=== PATIENT | female | born 1945 | race Caucasian/White ===

== ENCOUNTER 2017-01-04 11:53 | Outpatient (CLI) ==
[2015-12-12 13:09] VITALS: BMI 30.9
--- NOTE | 2017-01-04 12:33 | DI ---
EXAM: PA and lateral views of the chest HISTORY: Persisting cough COMPARISON: Chest x-ray 09/06/2014 and multiple priors FINDINGS: The cardiomediastinal silhouette is unchanged with stable sternotomy wires. There is no pneumothorax or pleural effusion. There is no consolidation, nodule or mass. The osseous structure s demonstrate degenerative disease of the spine. IMPRESSION: No acute cardiopulmonary process
[2017-01-04 13:06] LABS: BASOPHILS % (AUTO) 0.6 % (0.0-3.0); HEMATOCRIT 32.3 % (37.0-47.0); HEMOGLOBIN 10.6 g/dl (12.0-16.0); LYMPHOCYTES # (AUTO) 1.6 K/uL (0.60-3.4); LYMPHOCYTES % (AUTO) 22.6 (10.0-50.0); MEAN CORPUSCULAR HEMOGLOBIN 29.5 pg (27.0-31.0); MEAN CORPUSCULAR HGB CONC 32.8 (31.8-35.4); MONOCYTES # (AUTO) 0.4 K/uL (0.4-2.0); MONOCYTES % (AUTO) 5.9 (0-10); NEUTROPHILS % (AUTO) 69.9; PLATELET COUNT 237 10^3/uL (140-440); RED BLOOD COUNT 3.59 10^6/ul (4.20-5.40); WHITE BLOOD COUNT 7.12 K/ul (4.6-10.2)
[2017-01-04 13:10] LABS: BILIRUBIN,URINE Negative (NEGATIVE); KETONES,URINE Negative (NEGATIVE); LEUKOCYTE ESTERASE ,URINE Trace (NEGATIVE); NITRITE,URINE Negative (NEGATIVE); PH,URINE 5.5 (5-9); PROTEIN,URINE Negative (NEGATIVE); URINE, BLOOD Negative (NEGATIVE)
[2017-01-04 13:14] LABS: ADD URINE MICROSCOPIC YES
[2017-01-04 13:40] LABS: ALBUMIN/GLOBULIN RATIO 1.11; ANION GAP 15.2; BILIRUBIN,TOTAL 0.48 mg/dL (0.00-1.20); BUN/CREATININE RATIO 24.48; CHOL/HDL RATIO 4.6 (4.5-5.5); CREATININE 0.98 mg/dL (0.60-1.30); POTASSIUM 4.2 mmol/L (3.5-5.10); TOTAL PROTEIN 7.6 g/dL (5.8-8.1)
== END 2017-01-04 11:54 | disposition home or self-care (01) ==
LOC: LAB 11:53
PROVIDERS: ATTEND General Practice
DX: E11.9 Type 2 diabetes mellitus without complications (principal); R05 Cough; Z79.899 Other long term (current) drug therapy
CPT/HCPCS: 36415; 80053; 80061; 81001; 83036; 84443; 85025

== ENCOUNTER 2017-05-14 13:05 | Outpatient (CLI) | payer OTHER ==
[2015-12-12 13:09] VITALS: BMI 30.9
[2017-05-14 13:22] LABS: BILIRUBIN,URINE Negative (NEGATIVE); KETONES,URINE Negative (NEGATIVE); LEUKOCYTE ESTERASE ,URINE Negative (NEGATIVE); NITRITE,URINE Negative (NEGATIVE); PROTEIN,URINE Negative (NEGATIVE); URINE, BLOOD Negative (NEGATIVE)
[2017-05-14 13:23] LABS: BASOPHILS % (AUTO) 0.5 % (0.0-3.0); HEMATOCRIT 33.9 % (37.0-47.0); HEMOGLOBIN 11.1 g/dl (12.0-16.0); IMMATURE GRANULOCYTE % (AUTO) 0.5 % (0.0-5.0); LYMPHOCYTES # (AUTO) 1.7 K/uL (0.60-3.4); LYMPHOCYTES % (AUTO) 31.6 (10.0-50.0); MEAN CORPUSCULAR HEMOGLOBIN 29.1 pg (27.0-31.0); MEAN CORPUSCULAR HGB CONC 32.7 (31.8-35.4); MONOCYTES # (AUTO) 0.3 K/uL (0.4-2.0); MONOCYTES % (AUTO) 5.6 (0-10); NEUTROPHILS # (AUTO) 3.4 K/ul (2.0-6.9); NEUTROPHILS % (AUTO) 61.8; PLATELET COUNT 211 10^3/uL (140-440); RED BLOOD COUNT 3.81 10^6/ul (4.20-5.40)
[2017-05-14 13:24] LABS: ADD URINE MICROSCOPIC NO
[2017-05-14 14:03] LABS: ALBUMIN 3.9 g/dL (3.4-5.0); ALBUMIN/GLOBULIN RATIO 1.15; ANION GAP 15.1; BILIRUBIN,TOTAL 0.55 mg/dL (0.00-1.20); BUN/CREATININE RATIO 25.89; CALCIUM 9.1 mg/dL (8.2-10.2); CHOL/HDL RATIO 4.2 (4.5-5.5); CREATININE 1.12 mg/dL (0.60-1.30); POTASSIUM 4.1 mmol/L (3.5-5.10); TOTAL PROTEIN 7.3 g/dL (5.8-8.1)
== END 2017-05-14 13:06 | disposition home or self-care (01) ==
LOC: LAB 13:05
PROVIDERS: ATTEND General Practice
DX: E03.9 Hypothyroidism, unspecified (principal); E11.9 Type 2 diabetes mellitus without complications; R53.83 Other fatigue; Z79.899 Other long term (current) drug therapy
CPT/HCPCS: 36415; 80053; 80061; 81001; 83036; 84443; 85025

== ENCOUNTER → 2017-06-11 | Outpatient (POV) ==
[2015-12-12 13:09] VITALS: BMI 30.9
== END ==
LOC: OUTPT 00:01
PROVIDERS: ATTEND Otolaryngology
DX: H91.90 Unspecified hearing loss, unspecified ear (principal)
CPT/HCPCS: 92557; 92567

== ENCOUNTER 2017-07-16 07:36 | Outpatient (CLI) ==
[2015-12-12 13:09] VITALS: BMI 30.9
[2017-07-16 08:13] LABS: ALBUMIN 3.9 g/dL (3.4-5.0); BUN/CREATININE RATIO 18.34; CALCIUM 9.3 mg/dL (8.2-10.2); CREATININE 1.09 mg/dL (0.60-1.30); PHOSPHORUS 3.8 mg/dL (2.8-4.1)
== END 2017-07-16 07:37 | disposition home or self-care (01) ==
LOC: LAB 07:36
PROVIDERS: ATTEND General Practice
DX: E11.9 Type 2 diabetes mellitus without complications (principal); R10.9 Unspecified abdominal pain; R14.0 Abdominal distension (gaseous); Z79.899 Other long term (current) drug therapy
CPT/HCPCS: 36415; 80069; 83036

== ENCOUNTER 2017-07-23 08:16 | Day surgery (SDC) ==
[2015-12-12 13:09] VITALS: BMI 30.9
[2017-07-23] MEDS ORDERED: LIDOCAINE 1% 20 ML MDV ID STA (09:07)
[2017-07-23] MEDS ORDERED: VERSED ONE (10:18)
[2017-07-23] MEDS ORDERED: LIDOCAINE HCL 2% LUER-JET ONE (10:18)
[2017-07-23] MEDS ORDERED: DIPRIVAN 20 ML VIAL IVP ONE (10:18)
[2017-07-23 14:02] VITALS: BP 135/66; TEMP 98.5
--- NOTE | 2017-07-24 09:09 | OP ---
INDICATIONS FOR PROCEDURE: 72-year-old female presents for endoscopy exam. She has intermittent dysphagia mostly to solids. MEDICATIONS: SEE ANESTHESIA NOTES. PROCEDURE: ENDOSCOPY, OWEN BRUSHING, BANGLADESHI DILATATION REPORT: The risks, benefits, alternatives and limitations were discussed in detail with the patient. Informed consent was obtained. After adequate sedation was achieved, the video endoscope was introduced in the posterior pharynx and esophagus under direct vision and easily advanced down to the second portion of the duodenum. I then slowly withdrew. The duodenal mucosa appeared unremarkable as did the duodenal bulb. The antrum and body were relatively unremarkable. The scope was retroflexed to look at the cardia and fundus which was unremarkable. The scope was anteflexed and withdrawn back through the esophagus. Throughout the esophagus there was yellow plaquing consistent with Candidiasis. There was moderate amount of this. There was no underlying inflammatory changes. The yellow plaques were brushed for OWEN prep. I saw no other abnormalities to account for dysphagia. I advanced the scope back down the gastric lumen. I placed a guidewire and withdrew the scope. Over the guidewire, I easily advanced the 54 [place] dilator. The patient tolerated the procedure well with stable vital signs and pulse oximetry throughout. IMPRESSION: 1. PROBABLE ESOPHAGEAL CANDIDIASIS 2. SUCCESSUFUL PASSIVE DILATATION OF THE ESOPHAGUS RECOMMENDATIONS: 1. Diflucan 100 mg daily for 7 days 2. I advised her to make sure she takes her time to cut and chew food well, eat slowly. 3. Will await OWEN prep to confirm. 4. Office visit as needed. CC: DR. CARLITOS LARSON
== END 2017-07-23 11:50 | disposition home or self-care (01) ==
LOC: SURG 08:16
PROVIDERS: ATTEND Internal Medicine Gastroenterology
DX: R13.19 Other dysphagia (principal); B37.81 Candidal esophagitis
CPT/HCPCS: 87210

== ENCOUNTER 2018-05-27 16:56 | Outpatient (CLI) | payer OTHER ==
[2015-12-12 13:09] VITALS: BMI 30.9
--- NOTE | 2018-05-27 18:17 | CT ---
EXAM: CT abdomen and pelvis without contrast HISTORY: Unspecified abdominal pain TECHNIQUE: Multi-slice transaxial helical with coronal and sagittal reformed images COMPARISON: CT abdomen/pelvis from 03/15/2015 FINDINGS: The heart is mildly enlarged. No pericardial or pleural effusions are detected. Wire ster nal sutures are in place. The dependent lungs are atelectatic. The hepatic attenuation is normal relative to the spleen. Hepatic surface contours are nodular. The spleen is enlarged at 13.6 cm. The umbilical vein is recannulated. The gallbladder is present with out significant dilatation. The pancreas is atrophic. The adrenal glands are normal. The kidneys h ave normal size. There is focal renal cortical thinning at the inferior pole of the left kidney. Th e ureters have normal caliber. The nonopacified bladder is grossly normal. The uterus is surgically absent and there are no adnexal masses. The intestines have normal caliber without evidence of obstruction or acute inflammation. The append ix is not visualized. There are no secondary features of acute appendicitis. Diverticula arise from sigmoid colon without CT evidence of diverticulitis. The aorta is atherosclerotic. No lymphadenopa thy or ascites. The bones are free of suspicious osteolytic or osteoblastic lesions. A right total hip prosthetic is in place without evidence of loosening. IMPRESSION: 1. 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 2. No biliary dilatation. 3. No ureteral pelvicaliectasis. 4. Nonobstructive intestinal gas pattern. Colonic diverticulosis without CT evidence of diverticuli tis.
== END 2018-05-27 16:57 | disposition home or self-care (01) ==
LOC: RAD 16:56
PROVIDERS: ATTEND General Practice
DX: R10.9 Unspecified abdominal pain (principal); R10.819 Abdominal tenderness, unspecified site
CPT/HCPCS: 36415; 80053; 81001; 83036; 84443; 85025

== ENCOUNTER 2018-05-27 18:14 | Outpatient (CLI) | payer OTHER ==
[2015-12-12 13:09] VITALS: BMI 30.9
== END 2018-05-27 18:15 | disposition home or self-care (01) ==
LOC: LAB 18:14
PROVIDERS: ATTEND General Practice
DX: E11.9 Type 2 diabetes mellitus without complications (principal); R10.9 Unspecified abdominal pain; R10.819 Abdominal tenderness, unspecified site
CPT/HCPCS: 36415; 80053; 81001; 83036; 84443; 85025

== ENCOUNTER 2018-06-17 16:27 | Outpatient (CLI) | payer OTHER ==
[2015-12-12 13:09] VITALS: BMI 30.9
== END 2018-06-17 16:28 | disposition home or self-care (01) ==
LOC: RHC-LAB 16:27
PROVIDERS: ATTEND General Practice
DX: K74.60 Unspecified cirrhosis of liver (principal); E11.9 Type 2 diabetes mellitus without complications
CPT/HCPCS: 36415; 80061; 80076; 84443

== ENCOUNTER 2018-09-17 14:21 | Outpatient (CLI) ==
[2015-12-12 13:09] VITALS: BMI 30.9
== END 2018-09-17 14:22 | disposition home or self-care (01) ==
LOC: RHC-LAB 14:21
PROVIDERS: ATTEND General Practice
DX: R06.02 Shortness of breath (principal); E11.9 Type 2 diabetes mellitus without complications; E03.9 Hypothyroidism, unspecified
CPT/HCPCS: 36415; 80053; 80061; 83880; 84443; 85025

== ENCOUNTER 2018-09-26 15:57 | Outpatient (CLI) | payer OTHER ==
[2015-12-12 13:09] VITALS: BMI 30.9
== END 2018-09-26 15:58 | disposition home or self-care (01) ==
LOC: RHC-LAB 15:57
PROVIDERS: ATTEND General Practice
DX: D64.9 Anemia, unspecified (principal)
CPT/HCPCS: 36415; 85025

== ENCOUNTER 2018-11-27 11:36 | Outpatient (CLI) ==
[2015-12-12 13:09] VITALS: BMI 30.9
== END 2018-11-27 11:37 | disposition home or self-care (01) ==
LOC: RHC-LAB 11:36
PROVIDERS: ATTEND General Practice
DX: E11.9 Type 2 diabetes mellitus without complications (principal); E03.9 Hypothyroidism, unspecified; Z79.899 Other long term (current) drug therapy
CPT/HCPCS: 36415; 80053; 80061; 81001; 83036; 84443; 85025

== ENCOUNTER 2018-12-02 16:31 | Outpatient (CLI) ==
[2015-12-12 13:09] VITALS: BMI 30.9
--- NOTE | 2018-12-03 09:04 | DI ---
EXAM: Two views of the chest. History: Cough. Comparison: Chest radiograph 62,017 Findings: Heart is mildly enlarged. Sternotomy wires. Artificial heart valve again seen. No focal consolidation. No appreciable pleural fluid and no pneumothorax. Atherosclerotic vascular calcific ations. No acute osseous abnormalities. Impression: Mild cardiomegaly without acute disease in the chest
--- NOTE | 2018-12-03 09:05 | DI ---
Exam: Lumbar spine complete with obliques. HISTORY: Pain. Comparison: Lumbar spine CT 07/16/2014. Findings: Anterior, lateral, cone down and bilateral oblique images of the lumbar spine are submitte d. These again demonstrates six [id number], lumbarized vertebrae with mild levoscoliosis. Ther e is multilevel moderate degenerative disc and facet arthropathy with no compression fracture. 2 mm anterolisthesis of L5 on L6 is noted. Dense atherosclerotic disease is seen. Impressions: Multilevel moderate degenerative disc disease and moderate to severe facet arthropathy with no compression fracture in the lumbar spine Six [id number], lumbarized vertebrae. 2 mm anterolisthesis of L5 on L6. Atherosclerosis.
== END 2018-12-02 16:32 | disposition home or self-care (01) ==
LOC: RAD 16:31
PROVIDERS: ATTEND General Practice
DX: M54.5 Low back pain (principal); R05 Cough

== ENCOUNTER 2018-12-25 16:17 | Outpatient (CLI) ==
[2015-12-12 13:09] VITALS: BMI 30.9
== END 2018-12-25 16:18 | disposition home or self-care (01) ==
LOC: LAB 16:17
PROVIDERS: ATTEND General Practice
DX: E11.9 Type 2 diabetes mellitus without complications (principal); E03.9 Hypothyroidism, unspecified
CPT/HCPCS: 36415; 80053; 80061; 83036; 84443; 85025

== ENCOUNTER 2019-01-01 08:08 | Outpatient (CLI) | payer OTHER ==
[2015-12-12 13:09] VITALS: BMI 30.9
== END 2019-01-01 08:09 | disposition home or self-care (01) ==
LOC: RHC-LAB 08:08
PROVIDERS: ATTEND General Practice
DX: R63.4 Abnormal weight loss (principal); R11.0 Nausea; R10.10 Upper abdominal pain, unspecified
CPT/HCPCS: 82272

== ENCOUNTER 2019-01-02 09:45 | Outpatient (CLI) | payer OTHER ==
[2015-12-12 13:09] VITALS: BMI 30.9
--- NOTE | 2019-01-02 11:38 | CT ---
EXAM: CT abdomen pelvis without contrast HISTORY: With loss, pain upper abdomen, nausea COMPARISON: 05/27/2018 TECHNIQUE: CT abdomen pelvis performed without intravenous contrast. Coronal and sagittal reformatt ed images obtained. FINDINGS: Please refer to separate report CT chest regarding findings in the lower chest. No free a ir. No acute abnormalities of the bones. Degenerative change in the spine. Right hip arthroplasty. Evaluation liver parenchyma limited without contrast. Nodular contour of the liver, suggesting cir rhotic configuration. No gallstones. Fatty atrophy of the pancreas. Spleen is enlarged. Adrenals unremarkable. Cortical scarring left inferior kidney, likely relates to remote insult. No hydroneph rosis or nephrolithiasis. Bladder partially obscured secondary to streak artifact from hip arthropla sty. Small fat-containing periumbilical hernia. Aorta normal in caliber. Extensive atherosclerosis . Stomach unremarkable. No dilated loops small bowel. Appendix not visualized. Colonic diverticul osis. Trace ascites. Recanalized periumbilical vein. Inflammation in the mesentery in the region s urrounding the inferior mesenteric artery. IMPRESSION: 1. Inflammation in the mesentery surrounding the inferior mesenteric artery, a finding is nonspecifi c and could represent vasculitis or panniculitis or other nonspecific mesenteric inflammatory process . 2. Cirrhotic appearance of the liver with findings suggesting portal hypertension including splenome bay and recanalized periumbilical vein. 3. Trace ascites. 4. Colonic diverticulosis. 5. Extensive atherosclerosis.
--- NOTE | 2019-01-02 11:51 | CT ---
EXAM: CT chest without contrast HISTORY: Abnormal weight loss COMPARISON: None TECHNIQUE: CT chest performed without intravenous contrast. Coronal and sagittal reformatted images obtained FINDINGS: Thoracic inlet unremarkable. Heart mildly enlarged. Coronary calcifications. Post CABG changes. No pericardial effusion. Aorta normal in caliber. Extensive atherosclerosis. Small ductu s diverticulum suggested. Esophagus unremarkable. Evaluation for lymphadenopathy limited without co ntrast. No lymphadenopathy identified. No acute abnormalities of the bones. Degenerative change in the spine. Median sternotomy wires. Central airway patent. Mild bibasilar ground-glass likely repr esents atelectasis. No airspace consolidation. No pleural effusion. No pneumothorax. Granulomatou s calcification. Please refer to separate report CT abdomen pelvis regarding findings in the upper a bdomen. IMPRESSION: 1. Mild bibasilar atelectasis. No airspace consolidation. 2. Cardiomegaly. Post CABG changes. 3. Extensive atherosclerosis.
== END 2019-01-02 09:46 | disposition home or self-care (01) ==
LOC: RAD 09:45
PROVIDERS: ATTEND General Practice
DX: E03.9 Hypothyroidism, unspecified (principal); R11.0 Nausea; R63.4 Abnormal weight loss; E78.49 Other hyperlipidemia; R10.10 Upper abdominal pain, unspecified
CPT/HCPCS: 36415; 84443; 85651; 86140; 87015; 87045; 87493; 87899; 89055

== ENCOUNTER 2019-01-21 13:42 | Outpatient (CLI) ==
[2015-12-12 13:09] VITALS: BMI 30.9
[2019-01-21] MEDS ORDERED: VITAMIN B-12 IM STA (14:02)
[2019-01-21 14:16] VITALS: BP 128/80; TEMP 99
== END 2019-01-21 13:43 | disposition home or self-care (01) ==
LOC: OPMED 13:42
PROVIDERS: ATTEND Internal Medicine Hematology & Oncology
DX: D61.818 Other pancytopenia (principal)
CPT/HCPCS: 96372

== ENCOUNTER 2019-01-22 14:36 | Outpatient (CLI) ==
[2015-12-12 13:09] VITALS: BMI 30.9
[2019-01-22] MEDS ORDERED: VITAMIN B-12 IM STA (14:52)
[2019-01-22 15:21] VITALS: BP 122/67
== END 2019-01-22 14:37 | disposition home or self-care (01) ==
LOC: OPMED 14:36
PROVIDERS: ATTEND Internal Medicine Hematology & Oncology
DX: D61.818 Other pancytopenia (principal)
CPT/HCPCS: 96372

== ENCOUNTER 2019-01-23 09:33 | Outpatient (CLI) ==
[2015-12-12 13:09] VITALS: BMI 30.9
[2019-01-23] MEDS ORDERED: VITAMIN B-12 IM STA (09:46)
[2019-01-23 09:48] VITALS: BP 144/73; TEMP 98.6
== END 2019-01-23 09:34 | disposition home or self-care (01) ==
LOC: OPMED 09:33
PROVIDERS: ATTEND Internal Medicine Hematology & Oncology
DX: D61.818 Other pancytopenia (principal)
CPT/HCPCS: 96372

== ENCOUNTER 2019-01-29 16:10 | Observation (INO) ==
[2019-01-29 17:15] VITALS: BMI 21.9
[2019-01-29] MEDS ORDERED: NON-FORMULARY MEDICATION (Metformin Hcl [Metformin Hcl] 1,000 MG) PO SCH (21:00)
[2019-01-29] MEDS ORDERED: NON-FORMULARY MEDICATION (Losartan Potassium [Losartan Potassium] 50 MG) PO SCH (21:00)
--- NOTE | 2019-01-30 02:04 | DI ---
Exam: Chest two-view History: Cough and fever FINDINGS: Normal cardiomediastinal contours. Normal pulmonary vasculature. Atherosclerotic calcifi cation of the aorta. Prior mediastinotomy. No acute chest wall abnormality. Impression: No acute cardiopulmonary disease.
[2019-01-30] MEDS ORDERED: LEVOTHYROXINE SODIUM 88 MCG PO SCH (06:30)
[2019-01-30] MEDS: ASPIRIN 81 MG PO SCH (08:21)
[2019-01-30] MEDS: NON-FORMULARY MEDICATION (Amlodipine Besylate [Amlodipine Besylate] 2.5 MG) PO SCH (08:21)
[2019-01-30] MEDS: NON-FORMULARY MEDICATION (Losartan Potassium [Losartan Potassium] 50 MG) PO SCH ×2 (08:22→20:37)
[2019-01-30] MEDS: NON-FORMULARY MEDICATION (Metformin Hcl [Metformin Hcl] 1,000 MG) PO SCH ×2 (08:23→16:38)
[2019-01-30] MEDS: METOPROLOL SUCCINATE 50 MG PO SCH (08:23)
[2019-01-30] MEDS: NON-FORMULARY MEDICATION (Pravastatin Sodium [Pravastatin Sodium] 40 MG) PO SCH (08:24)
[2019-01-30] MEDS ORDERED: BLOOD SUGAR DIAGNOSTIC MC SCH (09:00)
[2019-01-30] MEDS ORDERED: INFUVITE ADULT IV ONE ×2 (12:40→23:10)
[2019-01-30] MEDS: INFUVITE ADULT 10 ML in D5%-1/2NS-KCL 20 MEQ/L IV SOL 1,000 ML IV SCH ×2 (12:59→23:18)
[2019-01-31] MEDS ORDERED: LEVOTHYROXINE SODIUM 88 MCG PO SCH (06:30)
[2019-01-31] MEDS: NON-FORMULARY MEDICATION (Pravastatin Sodium [Pravastatin Sodium] 40 MG) PO SCH (08:26)
[2019-01-31] MEDS: METOPROLOL SUCCINATE 50 MG PO SCH (08:27)
[2019-01-31] MEDS: NON-FORMULARY MEDICATION (Amlodipine Besylate [Amlodipine Besylate] 2.5 MG) PO SCH (08:27)
[2019-01-31] MEDS: NON-FORMULARY MEDICATION (Losartan Potassium [Losartan Potassium] 50 MG) PO SCH (08:27)
[2019-01-31] MEDS: ASPIRIN 81 MG PO SCH (08:27)
[2019-01-31] MEDS: NON-FORMULARY MEDICATION (Metformin Hcl [Metformin Hcl] 1,000 MG) PO SCH (08:27)
[2019-01-31] MEDS ORDERED: NON-FORMULARY MEDICATION (Solifenacin Succinate [Vesicare] 10 MG) PO SCH (09:00)
[2019-01-31] MEDS ORDERED: INFUVITE ADULT IV ONE (10:16)
[2019-01-31] MEDS: INFUVITE ADULT 10 ML in D5%-1/2NS-KCL 20 MEQ/L IV SOL 1,000 ML IV SCH (10:21)
[2019-01-31 14:02] VITALS: BP 131/69; TEMP 98
[2019-02-05] MEDS ORDERED: VITAMIN B-12 SUBCUT SCH (09:00)
--- NOTE | 2019-02-13 11:49 | DS ---
DATE OF SERVICE: 01/31/19 PATIENT IDENTIFICATION: 73-year-old female presented to the office on 01/29/19 because of fever and chills the night before and determined that her temperature did rise to 102. The patient at time of presentation to the office had a temperature of 100.5 complaining of headache, muscular aches, cough, nasal drainage. This patient had been referred to a fitter tacker/oncologist because of pancytopenia and had a bone marrow done 01/26/19 and iron infusion Saturday01/27/19. The patient has been advised that she might be referred to a outsole molder as well as infectious disease M.D. The patient because of the febrile illness and muscular aches and chills was admitted to the hospital for observation. HOSPITAL COURSE: The patient on admission was recorded to have a temperature 98.7 orally, pulse 70, blood pressure left 153/68 and 156/70 on right. Respiratory rate 16, oxygen saturation 99 on room air. Weight 119 lbs, 14.9 ozs, 5'2". Alert, oriented times four, not dyspneic or tachypneic. She just doesn't feel good complaining of headache as well as muscular aches and cough. The throat was erythematous with some exudates but the rapid strep was negative as well as influenza A and B. Neck no masses, no bruit. Chest essentially symmetrical and equal with good expansion. The patient has a scar in the median sternum from the heart bypass surgery. Lungs - breath sounds are heard on both sides, no rales or wheezing. Heart is audible and regular with good tones, no murmurs. Abdomen flat, soft, pendulous with no significant tenderness, no masses palpable. Bowel sounds are active and no bruit. External genitalia not examined. Rectal examination not performed as well as pelvic. The patient initial workup consisted of a CBC showing WBC 3,620, hemoglobin 9.5, hematocrit 30.6, RBC 3.26. RDW 15.4, platelet count 76,000, the rest are normal. Subsequent CBC essentially unchanged. CMP on admission is unremarkable. The proBNP is slightly elevated at 1,150. Procalcitonin 0.19. TSH 1.470. Urine normal and unremarkable. Repeat CMP the next day was essentially the same. On the 3rd day, the day of discharge the blood sugar did rise to 161.3. The NT-ProBNP went down to 627 from 1,150. Influenza A antibody was reported as 1:16 and the B is negative. Chest x-ray showed no acute cardiopulmonary disease. Temperature did rise slightly above normal to 99.3. Blood pressure remained slightly elevated. The patient during the subsequent hospital stay did not have any chills or any significant fever. The appetite seemed to be less and had no appetite at lunch. She has nibbled on her food. The patient on the day of discharge however did eat 100% of breakfast and 100% of lunch before discharge. The patient at time of discharge was alert, ambulatory with movement of all extremities with cough but no fever. The daughter was present in the room. I explained to the patient that we are not able to explain the fever. It might be a viral infection that did resolve. The influenza A titer is slightly elevated but not significantly high to account for the problem. I explained to them that we will try to get a convalescent titer somewhere about three weeks from the time of discharge. The patient's vital signs at 2 p.m. 01/31/19 reported a temperature of 98 orally, pulse 68, blood pressure 131/69, respiratory rate 20, oxygen saturation 97 on room air. Sore throat is much less. The redness is less. The lungs remain clear to auscultation on both sides. The heart is audible and regular with good tones. The abdomen is unremarkable. The patient still feels fatigued and afebrile. The muscular aches are less as well as the headaches. She is advised to continue with her followup with the fitter tacker/oncologist and the subspecialities that she is referred to. FINAL DIAGNOSES: 1. ACUTE FEBRILE ILLNESS, RESOLVED, PROBABLY VIRAL. 2. TYPE 2 DIABETES MELLITUS. 3. CORONARY ARTERY DISEASE STATUS POST BYPASS. 4. HYPERTENSION. 5. DYSLIPIDEMIA. 6. PANCYTOPENIA. 7. HYPOTHYROIDISM, REPLACED. 8. HISTORY OF DEPRESSION. PLAN: The patient is to see me at the office next week and before if there are any concerns. She should resume all of her medications. PROGNOSIS: Guarded. TIME SPENT: GREATER THAN 30 MINUTES MTDD
--- NOTE | 2019-03-03 14:02 | HP ---
DATE OF SERVICE: 01/29/19 CHIEF COMPLAINT: Chills and fever with muscle aches. High fever up to 102. HISTORY OF PRESENT ILLNESS: Ms. Davidson is a pleasant 73-year-old patient of Dr. Carolina that presented to the office with complaints of fever, chills and muscle aches that started the night prior. Her temperature in the office was 100.5. She reported the night prior that her temperature had gotten up to 102. She did have some complaints of sinus headache and some sinus drainage and a little bit of a cough. She denied urinary tract infection symptoms. She did report a recent bone marrow biopsy done on Saturday. She did have an iron infusion done on Saturday. 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 She does not appear well today. Her daughter is with her at the office visit today. She appears very weak. PAST MEDICAL HISTORY: Includes: tension headaches, a wound to the left arm that had a difficult time healing, acute arthritis, cataracts, depression, diabetes mellitus, dyslipidemia , hearing problems, renal stents, hypertension, hypothyroidism, myocardial infarction, restless leg syndrome, sleep trouble. PAST SURGICAL HISTORY: Includes: Partial thyroidectomy, retinal repair times two, liver biopsy, cataract extraction, coronary artery bypass graft in 2008, three bypasses, dental extraction, hysterectomy, tubal ligation. FAMILY HISTORY: Reported mother with history of diabetes mellitus, melanoma and hypertension; at age 69. SOCIAL HISTORY: Never smoker. No alcohol use. Denies any substance abuse. Buddhist preference is Druze. MEDICATIONS: (CURRENT HOME) Amlodipine 2.5 mg daily Metformin 1000 mg twice a day Levothyroxine 100 mcg daily Losartan 50 mg tablet twice a day Metoprolol XL 50 mg tablet daily Pravastatin 40 mg daily Aspirin 81 mg tablet daily Acetaminophen 500 mg tablet as needed ALLERGIES: PENICILLIN, SULFA AND MORPHINE REVIEW OF SYSTEMS: CONSTITUTIONAL: Positive for fever and chills. No reports of nightsweats. She has had some decrease in weight over the last several months. HEENT: She has had some sinus congestion, some sinus headache and nasal drainage. She has had a sore throat. CARDIOVASCULAR: No reports of chest pain, irregular rhythm, orthopnea. No reports of peripheral edema. LUNGS: She has had a congested cough. No reports of shortness of breath. She does complain of some chest congestion. No reports of lung disease. GASTROINTESTINAL: No complaints of abdominal pain, nausea, vomiting, diarrhea, constipation or blood in stool. No changes in stool consistency. GENITOURINARY: Denies any UTI symptoms. Denies any dysuria, hematuria, nocturia or urinary incontinence. MUSCULOSKELETAL: No reports of muscle pain, joint redness or swelling. She does have a history of arthritis NEUROLOGIC: No reports of any dizziness. Does complain of some fatigue and weakness. PSYCHIATRIC: No complaints of anxiety, depression or mood changes. . ENDOCRINE: She does have a history of diabetes mellitus and hypothyroidism. No complaints of increased thirst, urination, heat or cold intolerance. INTEGUMENT: No reports of rashes, lesions or skin changes. PHYSICAL EXAMINATION: GENERAL: She is alert and oriented. She does appear weak and ill. VITAL SIGNS: In the office, height 63", weight 146 lbs, temperature 100.5, pulse 70, respiratory rate 16, blood pressure 155/76 right arm, pulse ox 96% on room air. HEENT: Head is normocephalic, atraumatic. Pupils equal/reactive to light. Conjunctivae clear. Sclerae not icteric. Throat inflamed. No exudate. NECK: No lymphadenopathy. No carotid bruits auscultated. No masses. CARDIOVASCULAR: S1, S2, regular rate and rhythm. . LUNGS: Clear. Breathing within normal limits. She does have a bit of a congested cough. HEART: Audible and regular with good tones. No murmurs. ABDOMEN: Soft, nontender. No bruits. No distention. No mass. No tenderness. No rigidity. NEUROLOGIC: Cranial nerves 2-12 grossly intact. She answers all questions appropriately. No lateral weakness. No obvious deficit. SKIN: Warm and dry. No obvious rashes, lesions or wounds. She does have a dressing to her left arm. She does report that there is a wound there that is healing and this is a chronic wound for her. LABS AND DIAGNOSTIC TESTING: Not available. The patient is a direct admit from the office. ASSESSMENT: 1. Fever of unknown origin up to 102 degree F. 2. Cough and congestion. 3. Weakness. 4. Pancytopenia diagnosed per hematology with workup in process with recent bone marrow biopsy and iron infusion this past week. 5. Hypertension. 6. Hyperlipidemia. 7. Diabetes mellitus type 2. 8. History of coronary artery disease and coronary artery bypass grafting. 9. Hypothyroidism. 10. History of renal stent. 11. Restless leg syndrome. 12. History of arthritis. 13. Status post partial thyroidectomy and hysterectomy. PLAN: Admit the patient as 23 hour observation to the hospital Labs have been obtained in the office including CBC, CMP, and influenza A and B and urinalysis with culture and sensitivity as well as strep swab. We will obtain a chest x- ray, blood cultures as inpatient. We will follow the patient closely while in the hospital and initiate antibiotics if necessary. TIME SPENT: GREATER THAN 65 MINUTES MTDD
--- NOTE | 2019-03-10 11:25 | PN ---
DATE OF SERVICE: 01/30/19 SUBJECTIVE: Today her vital signs were stable. Temperature 98.2, pulse rate 80, blood pressure 103/60, respiratory rate 16, 02 sat 97% on room air. Temperature has remained 98 to 99 per check. Vital sign record has been reviewed. Labs were reviewed this morning. White count 2.97, hemoglobin 8.8, hematocrit 28.1, platelet count 73. Her chemistry panel revealed sodium 141.8, potassium 3.37, BUN 16.1 and creatinine 0.84, glucose 104.6. Her NT ProBNP on admission was 1150. Her chest x-ray was negative. Her urinalysis was negative. She does report that she is not drinking much. She is concerned about these fevers that she has been having. She is just worried overall. She has been complaining of some nausea. She just doesn't feel well overall. She just feels very weak. Temperature has again been afebrile. White count has been low and today was 2.97. I will place a physical therapy consult in the chart for order. As mentioned in the history and physical, she did have a recent bone marrow biopsy for evaluation of pancytopenia. This is per a local teaching music lessons. Will continue to follow the patient closely and further orders and recommendations by Dr. Carolina. IV fluids have also been ordered for Ms. Davidson. We will start the patient on D5 1/2 NS with 20 mEq of potassium with MVI to infuse at 100 mls/hr. Her home medications have been continued and again will order physical therapy consultation as well. MARSHA
--- NOTE | 2019-03-17 14:07 | PN ---
DATE OF SERVICE: 01/30/19 SUBJECTIVE: The patient is alert and responsive. Not dyspneic or tachypneic and no cyanosis. Her appetite was okay at breakfast but less at noon time. She denies any chest pain or abdominal pain. CBC essentially the same as yesterday. VITAL SIGNS: Temperature 98 oral, pulse 79, blood pressure 150/66, respiratory 16, oxygen saturation 98% room air. LUNGS: Clear to auscultation HEART: Audible and regular with good tones Blood culture was negative. The patient was given intervenous fluids consisting of D5 1/2 saline at 1,000cc plus 25KCL plus MVI to run at 100cc per hour. B12 injection was given weekly. Her medications were continued. Her vital signs are stable. MTDD
== END 2019-01-31 15:10 | disposition home or self-care (01) ==
LOC: MEDSURG B 16:10
PROVIDERS: ADMIT General Practice; ATTEND General Practice
DX: I25.810 Atherosclerosis of coronary artery bypass graft(s) without angina pectoris; F32.9 Major depressive disorder, single episode, unspecified; R50.9 Fever, unspecified; B34.9 Viral infection, unspecified; D61.818 Other pancytopenia; E11.9 Type 2 diabetes mellitus without complications; E03.9 Hypothyroidism, unspecified; I10 Essential (primary) hypertension; E78.5 Hyperlipidemia, unspecified

== ENCOUNTER 2019-01-29 16:11 | Outpatient (CLI) | payer OTHER ==
[2015-12-12 13:09] VITALS: BMI 30.9
== END 2019-01-29 16:12 | disposition home or self-care (01) ==
LOC: RHC-LAB 16:11
PROVIDERS: ATTEND General Practice
DX: R50.9 Fever, unspecified (principal); R05 Cough; R53.83 Other fatigue; Z79.899 Other long term (current) drug therapy
CPT/HCPCS: 36415; 80053; 85025; 86710; 87651

== ENCOUNTER 2020-04-04 05:41 | Inpatient (IN) ==
[2020-04-04] MEDS ORDERED: ZOFRAN 4 MG/2 ML IVP STA (06:15)
[2020-04-04] MEDS ORDERED: SODIUM CHLORIDE 500 ML IV STA (06:15)
--- NOTE | 2020-04-04 06:20 | ED.PDOC ---
General <JOSEPH DE LA ROSA MD - Last Filed: 04/04/20 17:28> ED Provider: Dr. JOSEPH DE LA ROSA Chief Complaint: Nausea/Vomiting Stated Complaint: something is making me nauseated and my heart race, also my back hurts Time Seen by Physician: 06:18 Mode of Arrival: Wheelchair Information Source: Patient and Family Primary Care Provider: ROSIO FRANCISCO Nursing and Triage Documentation Reviewed and Agree: Yes Does patient meet sepsis criteria?: No If yes, has appropriate treatment been initiated?: No System Inflammatory Response Syndrome: Temp 96.8F or Lower Sepsis Protocol: For patient's 13 years and over: Temp is 96.8 and below OR 101 and greater Pulse >90 BPM Resp >20/minute Acutely Altered Mental Status Are patient's symptoms suggestive of a new infection, such as: -Pneumonia -Skin, Soft Tissue -Endocarditis -UTI -Bone, Joint Infection -Implantable Device -Acute Abdominal Infection -Wound Infection -Meningitis -Blood Stream Catheter Infection -Unknown GI Complaint Exam <JOSEPH DE LA ROSA MD - Last Filed: 04/04/20 17:28> Abdominal Pain Complaint/Exam Onset: Sudden Duration: this am Symptoms Are: Still present Timing: Intermittent Initial Severity: Mild Current Severity: Mild Location of Pain: Epigastric Radiates To: Reports Back Character: Reports Dull Aggravating: Reports Food Alleviating: Reports None Associated Signs and Symptoms: Reports Back pain Cardiac Risk Factors: Reports DM and Hypertension Patient Rh Status: Unknown Abdominal Findings: Present None Differential Diagnoses: AMI Quality Indicator For Non-Traumatic Chest Pain/Syncope: EKG Performed Review of Systems <JOSEPH DE LA ROSA MD - Last Filed: 04/04/20 17:28> Review Of Systems Constitutional: Reports No symptoms Eyes: Reports No symptoms Ears, Nose, Mouth, Throat: Reports No symptoms Respiratory: Reports No symptoms Cardiac: Reports No symptoms GI: Reports Abdominal pain and Nausea : Reports No symptoms Musculoskeletal: Reports Back pain Skin: Reports No symptoms Neurological: Reports No symptoms Endocrine: Reports No symptoms Hematologic/Lymphatic: Reports No symptoms <EUGENIE BAUTISTA MD - Last Filed: 04/04/20 09:44> Review Of Systems All Other Systems: Reviewed and Negative PFSH <JOSEPH DE LA ROSA MD - Last Filed: 04/04/20 17:28> Medical History (Updated 08/31/20 @ 11:30 by MARCIA HERBERT) Cirrhosis of liver Depression Diabetes mellitus type 2, controlled, without complications Dyslipidemia Fatty liver History of renal stent [place] (hard of hearing) Hypertension Hypothyroidism Liver disease, chronic Myocardial infarction Osteoarthritis Presence of stent in coronary artery in patient with coronary artery disease Restless legs syndrome Splenomegaly Thrombocytopenia Family History Mother Diabetes FATHER No problems noted. SISTER No problems noted. BROTHER No problems noted. BROTHER No problems noted. 19 CHILD No problems noted. Grandfather/Grandmother No problems noted. Grandfather/Grandmother No problems noted. Social History Smoking and tobacco status: Never smoker Passive smoking exposure: No Second hand smoke exposure: No Alcohol intake: unknown Substance use type: unknown Household members: none Housing: apartment Lives independently: Yes long term: No Current occupational exposures/hazards: No History of recent travel: No Sexually active: No Do you think of yourself as: straight/heterosexual Current gender identity: female Female Reproductive History Menstrual Hx Hysterectomy: Yes Hx Tubal Ligation: No Physical Exam <JOSEPH DE LA ROSA MD - Last Filed: 04/04/20 17:28> Physical Exam Appearance: Reports Well-appearing Ill-appearing: None Pain Distress: None Eyes: Reports ROMIE, EOMI and Conjunctiva clear ENT: Reports Ears normal, Nose normal and Oropharynx normal Neck: Supple Respiratory: Reports Airway patent, Breath sounds clear and Breath sounds equal Cardiovascular: Reports RRR and Pulses normal GI/: Reports Soft, Nontender, No masses, Bowel sounds normal and No Organ omegaly Musculoskeletal: Reports Normal strength, ROM intact, No edema and No calf tenderness Skin: Reports Warm, Dry, Normal color and Pale Neurological: Reports Sensation intact, Motor intact, Reflexes intact, Cranial nerves intact, Alert and Oriented Psychiatric: Reports Affect appropriate, Mood appropriate and Anxious <EUGENIE BAUTISTA MD - Last Filed: 04/04/20 09:44> Radiology Interpretation Radiology Interpretation By: Radiologist Radiology Results: No acute changes Exam Interpreted: CXR and CT Scan EKG Interpretation Time of EKG #1: 06:42 Rate: Normal Rhythm: Other (atrial flutter with variable A-V block. ) Ectopy: None ST Segment: Other (non-specific ST and T wave changes.) <EUGENIE BAUTISTA MD - Last Filed: 04/04/20 09:44> Re-Evaluation Time of Re-Evaluation: 07:05 Status: Improved Vital Signs Stable: Yes Pain Level: 0 Appearance: NAD Lungs: Clear Skin: Warm and Dry Neuro: Other (Pt felt better. Less nausea and less heart palpitations. ) CV: RRR Physician Notification <JOSEPH DE LA ROSA MD - Last Filed: 04/04/20 17:28> Case Discussed Physician Notified: dr bautista Time of Notification: 07:00 <EUGENIE BAUTISTA MD - Last Filed: 04/04/20 09:44> Case Discussed Physician Notified: Dr Francisco Time of Notification: 09:25 Physician Notified: Pt was d/w Dr Francisco and admitted to Observation for Colitis, Hyperthyroid Admit/Transition Orders Entered by ED Provider: Yes Admit To: Observation <EUGENIE BAUTISTA MD - Last Filed: 04/04/20 09:44> Critical Care Note Total Time (mins): 0 Course <JOSEPH DE LA ROSA MD - Last Filed: 04/04/20 17:28> Course Hematology/Chemistry: 04/04/20 06:25 04/04/20 06:25 Orders, Labs, Meds: Lab Review 04/04/20 04/04/20 04/04/20 06:25 06:25 06:25 WBC 4.37 L RBC 3.03 L Hgb 9.2 L Hct 26.9 L MCV 88.8 MCH 30.4 MCHC 34.2 RDW Coeff of [place] 13.6 Plt Count 79 L Immature Gran % (Auto) 0.2 Neut % (Auto) 75.0 Lymph % (Auto) 19.5 [place] % (Auto) 4.8 Eos % (Auto) 0.0 Baso % (Auto) 0.5 Neut # (Auto) 3.3 Lymph # (Auto) 0.9 [place] # (Auto) 0.2 L Eos # (Auto) 0.0 Baso # (Auto) 0.0 Immature Gran # (Auto) 0.0 Sodium Potassium Chloride Carbon Dioxide Anion Gap BUN Creatinine Estimated GFR (MDRD) BUN/Creatinine Ratio Glucose Calcium Total Bilirubin AST ALT Alkaline Phosphatase Total Creatine Kinase Troponin I NT-Pro-B Natriuret Pep Total Protein Albumin Globulin Albumin/Globulin Ratio Amylase Lipase TSH 0.061 L Free T4 1.38 Urine Color Urine Clarity Urine pH Ur Specific [place] Urine Protein Urine Glucose (UA) Urine Ketones Urine Blood Urine Nitrite Urine Bilirubin Urine Urobilinogen Ur Leukocyte Esterase Urine Microscopic RBC Urine Microscopic WBC Ur Squamous Epith Cells Ur Renal Epithelial Cell Urine Bacteria Hyaline Casts Granular Casts 04/04/20 04/04/20 04/04/20 06:25 06:25 08:45 WBC RBC Hgb Hct MCV MCH MCHC RDW Coeff of [place] Plt Count Immature Gran % (Auto) Neut % (Auto) Lymph % (Auto) [place] % (Auto) Eos % (Auto) Baso % (Auto) Neut # (Auto) Lymph # (Auto) [place] # (Auto) Eos # (Auto) Baso # (Auto) Immature Gran # (Auto) Sodium 139.0 Potassium 3.43 L Chloride 114.1 H Carbon Dioxide 14.0 L Anion Gap 14.33 BUN 33.7 H Creatinine 1.54 H Estimated GFR (MDRD) 33.00 BUN/Creatinine Ratio 21.88 Glucose 160.5 H Calcium 8.63 Total Bilirubin 0.48 AST 30.3 ALT 14.3 Alkaline Phosphatase 62.4 Total Creatine Kinase 38.5 Troponin I < 0.012 NT-Pro-B Natriuret Pep 1310.000 H Total Protein 6.86 Albumin 3.92 Globulin 2.94 Albumin/Globulin Ratio 1.33 Amylase 36.0 Lipase 23.8 TSH Free T4 Urine Color Yellow Urine Clarity Clear Urine pH 5.5 Ur Specific [place] 1.020 Urine Protein Trace H Urine Glucose (UA) Negative Urine Ketones Negative Urine Blood Trace-lysed Urine Nitrite Negative Urine Bilirubin Negative Urine Urobilinogen 0.2 Ur Leukocyte Esterase Negative Urine Microscopic RBC 0-2 Urine Microscopic WBC 0-2 Ur Squamous Epith Cells 0-2 Ur Renal Epithelial Cell 0-2 Urine Bacteria Trace Hyaline Casts 0-2 Granular Casts 0-2 Orders Category Date Time Status EKG-(ED ONLY) Stat CARDIO 04/04/20 06:15 Completed ACTIVITY .Up ad Silvia CARE 04/04/20 09:30 Completed INTAKE & OUTPUT Q8HR CARE 04/04/20 09:31 Completed VITAL SIGNS Q4HR CARE 04/04/20 09:30 Completed VITAL SIGNS Q8HR CARE 04/04/20 09:31 Completed ED DINKING MACHINE OPERATOR APPLIED .ONCE EMERGENCY 04/04/20 06:15 Completed ED IV/MEDIPORT/POWERPORT .ONCE EMERGENCY 04/04/20 06:16 Completed AMYLASE Stat LAB 04/04/20 06:25 Completed BLOOD CULTURE (ED ONLY) Stat LAB 04/04/20 09:12 Received CBC W/ AUTO DIFF Stat LAB 04/04/20 06:25 Completed COMPREHENSIVE METABOLIC PANEL Stat LAB 04/04/20 06:25 Completed CREATINE KINASE Stat LAB 04/04/20 06:25 Completed FREE T4 (FREE THYROXINE) Stat LAB 04/04/20 06:25 Completed LIPASE Stat LAB 04/04/20 06:25 Completed NT-PROBNP Stat LAB 04/04/20 06:25 Completed THYROID STIMULATING HORMONE Stat LAB 04/04/20 06:25 Completed TROPONIN I Stat LAB 04/04/20 06:25 Completed URINALYSIS C & S IF INDICATED Stat LAB 04/04/20 08:45 Completed 0.9 % Sodium Chloride [Saline Flush] MEDS 04/04/20 06:15 Active 1 syr IVF PRN PRN Acetaminophen [Tylenol] MEDS 04/04/20 09:30 Discontinued 500 mg PO PRN Amlodipine Besylate [Norvasc] MEDS 04/05/20 09:00 Active 5 mg PO DAILY Aspirin [Aspirin EC] MEDS 04/05/20 08:30 Active 81 mg PO DAILYWM Ceftriaxone/D5w 1 gm Premix [Rocephin 1 gm/50 ml D5w] MEDS 04/05/20 09:00 Discontinued 1 gm in 50 ml IV DAILY Ceftriaxone/D5w 1 gm Premix [Rocephin 1 gm/50 ml D5w] MEDS 04/04/20 08:20 Discontinued 1 gm in 50 ml IV ONCE Losartan Potassium [Cozaar] MEDS 04/04/20 21:00 Active 50 mg PO BID Metformin HCl [Glucophage] MEDS 04/04/20 17:00 Active 1,000 mg PO BIDWM Metoprolol Succinate [Toprol Xl] MEDS 04/05/20 09:00 Active 50 mg PO DAILY Ondansetron HCl/Pf [Zofran 4 mg/2 ml] MEDS 04/04/20 06:15 Discontinued 4 mg IVP ONCE STA Ondansetron HCl/Pf [Zofran 4 mg/2 ml] MEDS 04/04/20 09:30 Discontinued 4 mg IVP Q8H Pantoprazole Sodium [Protonix IV] MEDS 04/04/20 10:00 Discontinued 40 mg IVP Q10H Potassium Chloride [K-Dur] MEDS 04/04/20 07:11 Discontinued 20 meq PO ONCE STA Pravastatin Sodium [Pravachol] MEDS 04/04/20 21:00 Active 40 mg PO BEDTIME Sodium Chloride 0.9% [Sodium Chloride] 1,000 ml MEDS 04/04/20 09:36 Active IV 100 mls/hr Sodium Chloride 0.9% [Sodium Chloride] 500 ml MEDS 04/04/20 06:15 Discontinued IV BOLUS RESUSCITATION STATUS Routine OTHERS 04/04/20 09:30 Completed CHEST, 1V AP ONLY Stat RADS 04/04/20 06:[address] ABDOMEN/PELVIS WO CONTRAST Stat RADS 04/04/20 06:[address] LUMBAR SPINE W/O CONTRAST Stat RADS 04/04/20 06:[address] THORACIC SPINE W/O CONTRAST Stat RADS 04/04/20 06:41 Completed Medications Generic Name Dose Route Start Last Admin Trade Name Freq PRN Reason Stop Dose Admin Acetaminophen 650 mg 04/04/20 11:04 Tylenol PO Q4H PRN Headache Amlodipine Besylate 5 mg 04/05/20 09:00 Norvasc PO DAILY KWADWO Aspirin 81 mg 04/05/20 08:30 Aspirin Ec PO DAILYWM KWADWO Atropine Sulfate 0.5 mg 04/04/20 11:04 Atropine Sulfate Pfs IVP ONCE PRN Symptomatic Bradycardia Ciprofloxacin 250 mg 04/05/20 06:30 Cipro PO 04/08/20 06:29 QDAC KWADWO Hydroxyzine HCl 25 mg 04/04/20 11:04 Vistaril Inj IM Q4H PRN Nausea/Vomiting/Restlessness Sodium Chloride 1,000 mls @ 100 mls/hr 04/04/20 09:36 04/04/20 10:10 Sodium Chloride IV 04/04/20 19:35 100 mls/hr .Q10H STA Administration Dextrose/Sodium Chloride 1,000 mls @ 83 mls/hr 04/04/20 11:30 04/04/20 12:52 Dextrose 5%-1/2ns Iv Solution IV 83 mls/hr .Q12H3M KWADWO Administration Levothyroxine Sodium 100 mcg 04/05/20 06:30 Synthroid PO QDAC KWADWO Losartan Potassium 50 mg 04/04/20 21:00 Cozaar PO BID KWADWO Metformin HCl 1,000 mg 04/04/20 17:00 04/04/20 17:27 Glucophage PO 1,000 mg BIDWM KWADWO Administration Metoprolol Succinate 50 mg 04/05/20 09:00 Toprol Xl PO DAILY KWADWO Metronidazole 250 mg 04/04/20 13:00 04/04/20 13:48 Flagyl PO 04/07/20 12:59 250 mg Q8HR KWADWO Administration Mirabegron 25 mg 04/05/20 09:00 Myrbetriq PO DAILY KWADWO Nitroglycerin 0.4 mg 04/04/20 11:04 Nitrostat SL Q5MIN X 3 DOSES PRN Chest Pain Ondansetron HCl 4 mg 04/04/20 13:00 04/04/20 13:48 Zofran 4 Mg/2 Ml IVP 4 mg Q8HR KWADWO Administration Pantoprazole Sodium 40 mg 04/04/20 10:00 04/04/20 11:50 Protonix Iv IVP 40 mg Q12HR KWADWO Administration Pravastatin Sodium 40 mg 04/04/20 21:00 Pravachol PO BEDTIME KWADWO Sodium Chloride 1 syr 04/04/20 06:15 Saline Flush IVF PRN PRN To flush IV Sodium Chloride 1 syr 04/04/20 13:00 04/04/20 13:49 Saline Flush IVF Not Given Q8HR KWADWO Discontinued Medications Generic Name Dose Route Start Last Admin Trade Name Freq PRN Reason Stop Dose Admin Acetaminophen 500 mg 04/04/20 09:30 Tylenol PO PRN KWADWO Sodium Chloride 500 mls @ 500 mls/hr 04/04/20 06:15 04/04/20 06:35 Sodium Chloride IV 04/04/20 07:14 500 mls/hr BOLUS STA Administration CEFTRIAXONE/D5W 1 GM PREMIX 1 gm in 50 mls @ 75 mls/hr 04/04/20 08:20 04/04/20 08:43 Rocephin 1 Gm/50 Ml D5w IV 04/04/20 08:59 75 mls/hr ONCE STA Administration CEFTRIAXONE/D5W 1 GM PREMIX 1 gm in 50 mls @ 75 mls/hr 04/05/20 09:00 Rocephin 1 Gm/50 Ml D5w IV 04/08/20 08:59 DAILY KWADWO Ondansetron HCl 4 mg 04/04/20 06:15 04/04/20 06:35 Zofran 4 Mg/2 Ml IVP 04/04/20 06:16 4 mg ONCE STA Administration Ondansetron HCl 4 mg 04/04/20 09:30 04/04/20 11:51 Zofran 4 Mg/2 Ml IVP Not Given Q8H KWADWO Pantoprazole Sodium 40 mg 04/04/20 10:00 Protonix Iv IVP Q10H KWADWO Potassium Chloride 20 meq 04/04/20 07:11 04/04/20 07:27 K-Dur PO 04/04/20 07:12 20 meq ONCE STA Administration Vital Signs: Temp Pulse Resp BP Pulse Ox 04/04/20 05:49 98.2 F 101 H 17 153/77 H 98 <EUGENIE BAUTISTA MD - Last Filed: 04/04/20 09:44> Course Orders, Labs, Meds: Lab Review 04/04/20 04/04/20 04/04/20 06:25 06:25 06:25 WBC 4.37 L RBC 3.03 L Hgb 9.2 L Hct 26.9 L MCV 88.8 MCH 30.4 MCHC 34.2 RDW Coeff of [place] 13.6 Plt Count 79 L Immature Gran % (Auto) 0.2 Neut % (Auto) 75.0 Lymph % (Auto) 19.5 [place] % (Auto) 4.8 Eos % (Auto) 0.0 Baso % (Auto) 0.5 Neut # (Auto) 3.3 Lymph # (Auto) 0.9 [place] # (Auto) 0.2 L Eos # (Auto) 0.0 Baso # (Auto) 0.0 Immature Gran # (Auto) 0.0 Sodium Potassium Chloride Carbon Dioxide Anion Gap BUN Creatinine Estimated GFR (MDRD) BUN/Creatinine Ratio Glucose Calcium Total Bilirubin AST ALT Alkaline Phosphatase Total Creatine Kinase Troponin I NT-Pro-B Natriuret Pep Total Protein Albumin Globulin Albumin/Globulin Ratio Amylase Lipase TSH 0.061 L Free T4 1.38 Urine Color Urine Clarity Urine pH Ur Specific [place] Urine Protein Urine Glucose (UA) Urine Ketones Urine Blood Urine Nitrite Urine Bilirubin Urine Urobilinogen Ur Leukocyte Esterase Urine Microscopic RBC Urine Microscopic WBC Ur Squamous Epith Cells Ur Renal Epithelial Cell Urine Bacteria Hyaline Casts Granular Casts 04/04/20 04/04/20 04/04/20 06:25 06:25 08:45 WBC RBC Hgb Hct MCV MCH MCHC RDW Coeff of [place] Plt Count Immature Gran % (Auto) Neut % (Auto) Lymph % (Auto) [place] % (Auto) Eos % (Auto) Baso % (Auto) Neut # (Auto) Lymph # (Auto) [place] # (Auto) Eos # (Auto) Baso # (Auto) Immature Gran # (Auto) Sodium 139.0 Potassium 3.43 L Chloride 114.1 H Carbon Dioxide 14.0 L Anion Gap 14.33 BUN 33.7 H Creatinine 1.54 H Estimated GFR (MDRD) 33.00 BUN/Creatinine Ratio 21.88 Glucose 160.5 H Calcium 8.63 Total Bilirubin 0.48 AST 30.3 ALT 14.3 Alkaline Phosphatase 62.4 Total Creatine Kinase 38.5 Troponin I < 0.012 NT-Pro-B Natriuret Pep 1310.000 H Total Protein 6.86 Albumin 3.92 Globulin 2.94 Albumin/Globulin Ratio 1.33 Amylase 36.0 Lipase 23.8 TSH Free T4 Urine Color Yellow Urine Clarity Clear Urine pH 5.5 Ur Specific [place] 1.020 Urine Protein Trace H Urine Glucose (UA) Negative Urine Ketones Negative Urine Blood Trace-lysed Urine Nitrite Negative Urine Bilirubin Negative Urine Urobilinogen 0.2 Ur Leukocyte Esterase Negative Urine Microscopic RBC 0-2 Urine Microscopic WBC 0-2 Ur Squamous Epith Cells 0-2 Ur Renal Epithelial Cell 0-2 Urine Bacteria Trace Hyaline Casts 0-2 Granular Casts 0-2 Orders Category Date Time Status EKG-(ED ONLY) Stat CARDIO 04/04/20 06:15 Completed ACTIVITY .Up ad Silvia CARE 04/04/20 09:30 Completed INTAKE & OUTPUT Q8HR CARE 04/04/20 09:31 Completed VITAL SIGNS Q4HR CARE 04/04/20 09:30 Completed VITAL SIGNS Q8HR CARE 04/04/20 09:31 Completed ED DINKING MACHINE OPERATOR APPLIED .ONCE EMERGENCY 04/04/20 06:15 Completed ED IV/MEDIPORT/POWERPORT .ONCE EMERGENCY 04/04/20 06:16 Completed AMYLASE Stat LAB 04/04/20 06:25 Completed BLOOD CULTURE (ED ONLY) Stat LAB 04/04/20 09:12 Received CBC W/ AUTO DIFF Stat LAB 04/04/20 06:25 Completed COMPREHENSIVE METABOLIC PANEL Stat LAB 04/04/20 06:25 Completed CREATINE KINASE Stat LAB 04/04/20 06:25 Completed FREE T4 (FREE THYROXINE) Stat LAB 04/04/20 06:25 Completed LIPASE Stat LAB 04/04/20 06:25 Completed NT-PROBNP Stat LAB 04/04/20 06:25 Completed THYROID STIMULATING HORMONE Stat LAB 04/04/20 06:25 Completed TROPONIN I Stat LAB 04/04/20 06:25 Completed URINALYSIS C & S IF INDICATED Stat LAB 04/04/20 08:45 Completed 0.9 % Sodium Chloride [Saline Flush] MEDS 04/04/20 06:15 Active 1 syr IVF PRN PRN Acetaminophen [Tylenol] MEDS 04/04/20 09:30 Discontinued 500 mg PO PRN Amlodipine Besylate [Norvasc] MEDS 04/05/20 09:00 Active 5 mg PO DAILY Aspirin [Aspirin EC] MEDS 04/05/20 08:30 Active 81 mg PO DAILYWM Ceftriaxone/D5w 1 gm Premix [Rocephin 1 gm/50 ml D5w] MEDS 04/05/20 09:00 Discontinued 1 gm in 50 ml IV DAILY Ceftriaxone/D5w 1 gm Premix [Rocephin 1 gm/50 ml D5w] MEDS 04/04/20 08:20 Discontinued 1 gm in 50 ml IV ONCE Losartan Potassium [Cozaar] MEDS 04/04/20 21:00 Active 50 mg PO BID Metformin HCl [Glucophage] MEDS 04/04/20 17:00 Active 1,000 mg PO BIDWM Metoprolol Succinate [Toprol Xl] MEDS 04/05/20 09:00 Active 50 mg PO DAILY Ondansetron HCl/Pf [Zofran 4 mg/2 ml] MEDS 04/04/20 06:15 Discontinued 4 mg IVP ONCE STA Ondansetron HCl/Pf [Zofran 4 mg/2 ml] MEDS 04/04/20 09:30 Discontinued 4 mg IVP Q8H Pantoprazole Sodium [Protonix IV] MEDS 04/04/20 10:00 Discontinued 40 mg IVP Q10H Potassium Chloride [K-Dur] MEDS 04/04/20 07:11 Discontinued 20 meq PO ONCE STA Pravastatin Sodium [Pravachol] MEDS 04/04/20 21:00 Active 40 mg PO BEDTIME Sodium Chloride 0.9% [Sodium Chloride] 1,000 ml MEDS 04/04/20 09:36 Active IV 100 mls/hr Sodium Chloride 0.9% [Sodium Chloride] 500 ml MEDS 04/04/20 06:15 Discontinued IV BOLUS RESUSCITATION STATUS Routine OTHERS 04/04/20 09:30 Completed CHEST, 1V AP ONLY Stat RADS 04/04/20 06:[address] ABDOMEN/PELVIS WO CONTRAST Stat RADS 04/04/20 06:[address] LUMBAR SPINE W/O CONTRAST Stat RADS 04/04/20 06:[address] THORACIC SPINE W/O CONTRAST Stat RADS 04/04/20 06:41 Completed Medications Generic Name Dose Route Start Last Admin Trade Name Freq PRN Reason Stop Dose Admin Acetaminophen 650 mg 04/04/20 11:04 Tylenol PO Q4H PRN Headache Amlodipine Besylate 5 mg 04/05/20 09:00 Norvasc PO DAILY KWADWO Aspirin 81 mg 04/05/20 08:30 Aspirin Ec PO DAILYWM [facility] Atropine Sulfate 0.5 mg 04/04/20 11:04 Atropine Sulfate Pfs IVP ONCE PRN Symptomatic Bradycardia Ciprofloxacin 250 mg 04/05/20 06:30 Cipro PO 04/08/20 06:29 QDAC KWADWO Hydroxyzine HCl 25 mg 04/04/20 11:04 Vistaril Inj IM Q4H PRN Nausea/Vomiting/Restlessness Sodium Chloride 1,000 mls @ 100 mls/hr 04/04/20 09:36 04/04/20 10:10 Sodium Chloride IV 04/04/20 19:35 100 mls/hr .Q10H STA Administration Dextrose/Sodium Chloride 1,000 mls @ 83 mls/hr 04/04/20 11:30 04/04/20 12:52 Dextrose 5%-1/2ns Iv Solution IV 83 mls/hr .Q12H3M KWADWO Administration Levothyroxine Sodium 100 mcg 04/05/20 06:30 Synthroid PO QDAC KWADWO Losartan Potassium 50 mg 04/04/20 21:00 Cozaar PO BID KWADWO Metformin HCl 1,000 mg 04/04/20 17:00 04/04/20 17:27 Glucophage PO 1,000 mg BIDWM KWADWO Administration Metoprolol Succinate 50 mg 04/05/20 09:00 Toprol Xl PO DAILY KWADWO Metronidazole 250 mg 04/04/20 13:00 04/04/20 13:48 Flagyl PO 04/07/20 12:59 250 mg Q8HR KWADWO Administration Mirabegron 25 mg 04/05/20 09:00 Myrbetriq PO DAILY [facility] Nitroglycerin 0.4 mg 04/04/20 11:04 Nitrostat SL Q5MIN X 3 DOSES PRN Chest Pain Ondansetron HCl 4 mg 04/04/20 13:00 04/04/20 13:48 Zofran 4 Mg/2 Ml IVP 4 mg Q8HR KWADWO Administration Pantoprazole Sodium 40 mg 04/04/20 10:00 04/04/20 11:50 Protonix Iv IVP 40 mg Q12HR KWADWO Administration Pravastatin Sodium 40 mg 04/04/20 21:00 Pravachol PO BEDTIME KWAWDO Sodium Chloride 1 syr 04/04/20 06:15 Saline Flush IVF PRN PRN To flush IV Sodium Chloride 1 syr 04/04/20 13:00 04/04/20 13:49 Saline Flush IVF Not Given Q8HR KWADWO Discontinued Medications Generic Name Dose Route Start Last Admin Trade Name Freq PRN Reason Stop Dose Admin Acetaminophen 500 mg 04/04/20 09:30 Tylenol PO PRN KWADWO Sodium Chloride 500 mls @ 500 mls/hr 04/04/20 06:15 04/04/20 06:35 Sodium Chloride IV 04/04/20 07:14 500 mls/hr BOLUS STA Administration CEFTRIAXONE/D5W 1 GM PREMIX 1 gm in 50 mls @ 75 mls/hr 04/04/20 08:20 04/04/20 08:43 Rocephin 1 Gm/50 Ml D5w IV 04/04/20 08:59 75 mls/hr ONCE STA Administration CEFTRIAXONE/D5W 1 GM PREMIX 1 gm in 50 mls @ 75 mls/hr 04/05/20 09:00 Rocephin 1 Gm/50 Ml D5w IV 04/08/20 08:59 DAILY KWADWO Ondansetron HCl 4 mg 04/04/20 06:15 04/04/20 06:35 Zofran 4 Mg/2 Ml IVP 04/04/20 06:16 4 mg ONCE STA Administration Ondansetron HCl 4 mg 04/04/20 09:30 04/04/20 11:51 Zofran 4 Mg/2 Ml IVP Not Given Q8H KWADWO Pantoprazole Sodium 40 mg 04/04/20 10:00 Protonix Iv IVP Q10H KWADWO Potassium Chloride 20 meq 04/04/20 07:11 04/04/20 07:27 K-Dur PO 04/04/20 07:12 20 meq ONCE STA Administration Vital Signs: Temp Pulse Resp BP Pulse Ox 04/04/20 05:49 98.2 F 101 H 17 153/77 H 98 Discharge Plan Discharge Patient Disposition: ADMITTED INPATIENT Discharge Problem: Colitis, Hyperthyroidism ED Provider: EUGENIE BAUTISTA Condition: Stable Discharge Date/Time: 04/04/20 09:45
[2020-04-04 06:30] LABS: BASOPHILS % (AUTO) 0.5 % (0.0-3.0); HEMATOCRIT 26.9 % (37.0-47.0); HEMOGLOBIN 9.2 g/dl (12.0-16.0); IMMATURE GRANULOCYTE % (AUTO) 0.2 % (0.0-5.0); LYMPHOCYTES # (AUTO) 0.9 K/uL (0.60-3.4); LYMPHOCYTES % (AUTO) 19.5 (10.0-50.0); MEAN CORPUSCULAR HEMOGLOBIN 30.4 pg (27.0-31.0); MEAN CORPUSCULAR HGB CONC 34.2 (31.8-35.4); MEAN CORPUSCULAR VOLUME 88.8 fl (81.0-99.0); MONOCYTES # (AUTO) 0.2 K/uL (0.4-2.0); MONOCYTES % (AUTO) 4.8 (0-10); NEUTROPHILS # (AUTO) 3.3 K/ul (2.0-6.9); PLATELET COUNT 79 10^3/uL (140-440); RDW COEFFICIENT OF VARIATION 13.6 % (11.6-14.8); RED BLOOD COUNT 3.03 10^6/ul (4.20-5.40); WHITE BLOOD COUNT 4.37 K/ul (4.6-10.2)
[2020-04-04 06:44] LABS: ALANINE AMINOTRANSFERASE 14.3 U/L (0-35); ALBUMIN 3.92 g/dL (3.5-5.0); ALKALINE PHOSPHATASE 62.4 U/L (53-141); ASPARTATE AMINO TRANSFERASE 30.3 U/L (14-36); BILIRUBIN,TOTAL 0.48 mg/dL (0.2-1.3); BLOOD UREA NITROGEN 33.7 mg/dL (7-17); CALCIUM 8.63 mg/dL (8.4-10.2); CHLORIDE 114.1 mmol/L (98-107); CREATINE KINASE 38.5 U/L (30-135); CREATININE 1.54 mg/dL (0.60-1.30); GLUCOSE 160.5 mg/dL (74-106); LIPASE 23.8 U/L (23-300); POTASSIUM 3.43 mmol/L (3.5-5.1); TOTAL PROTEIN 6.86 g/dL (6.3-8.2)
[2020-04-04 06:55] LABS: TROPONIN I < 0.012 ng/ml (0.0000-0.120)
[2020-04-04] MEDS ORDERED: K-DUR PO STA (07:11)
--- NOTE | 2020-04-04 07:26 | DI ---
EXAM: Single view of the chest HISTORY: Nausea. COMPARISON: Chest x-ray 01/29/[address] 01/02/2019 FINDINGS: Cardiomediastinal silhouette is unremarkable. Sternotomy wires are present. There is no p neumothorax or effusion. There is no consolidation, nodule or mass. The osseous structures are unre markable. IMPRESSION: No acute cardiopulmonary process
--- NOTE | 2020-04-04 07:40 | CT ---
EXAM: CT thoracic spine without contrast HISTORY: Back pain. COMPARISON: CT chest 01/02/2019 TECHNIQUE: Serial axial images of the thoracic spine was obtained without contrast. These were view ed in multiple planes. FINDINGS: There is no lytic or blastic lesion. There is no acute compression fracture or subluxation . There is multilevel joint space narrowing with anterior disc osteophytes. There is facet arthropa thy. The posterior processes are normal. The soft tissues demonstrate moderate calcific atheroscler otic disease. The lungs demonstrate mild dependent atelectasis. There is scattered neural foraminal narrowing at multiple levels, no greater than mild to moderate. IMPRESSION: 1. No acute compression fracture or subluxation. 2. 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
--- NOTE | 2020-04-04 07:47 | CT ---
EXAM: CT lumbar spine without contrast. HISTORY: Back pain COMPARISON: The CT abdomen pelvis same day and CT lumbar spine 07/16/2014 TECHNIQUE: Serial axial images of the spine were obtained from the lower thoracic spine through the pelvis without contrast. These were viewed in multiple planes. FINDINGS: Vertebral bodies demonstrate no acute compression fracture or significant subluxation. Th ere is disc space narrowing at L1-L3 with scattered anterior posterior disc osteophytes. There is mu ltilevel moderate facet arthropathy. The posterior processes are unremarkable. There is minimal lef tward curvature. L1-L2: Broad-based disc bulge and facet arthropathy with bilateral moderate neural foraminal narrowin g. L2-L3: Broad-based disc bulge and facet arthropathy with moderate right neural foraminal narrowing. L3-L4: Broad-based disc bulge and facet arthropathy with bilateral mild to moderate neural foraminal narrowing. L4-L5: Broad-based disc bulge and facet arthropathy with bilateral moderate neural foraminal narrowin g. L5-S1: Small disc bulge and facet arthropathy with no central and neural foraminal narrowing. Limited views of the soft tissues are evaluated on same day CT abdomen pelvis IMPRESSION: 1. No acute compression fracture or subluxation. 2. Multilevel moderate to severe degenerative disease of the lumbosacral spine with multiple levels of the least moderate neural foraminal narrowing. If further evaluation is clinically indicated, MRI may be obtained.
--- NOTE | 2020-04-04 08:16 | CT ---
EXAM: CT ABDOMEN AND PELVIS HISTORY: Nausea and abdominal pain TECHNIQUE: CT abdomen and pelvis without intravenous contrast. Images were reconstructed using 5 mm section thickness. Reformations were prepared. COMPARISON: 01/02/2019 FINDINGS: Diagnostic limitations exist without including intravenous contrast enhanced images. Prominent cauda te lobe and slight serration of the peripheral margin of the liver may indicate early cirrhotic archi tecture. Splenic length is upper limit normal at about 12 cm. Gallbladder is grossly unremarkable. Fatty lobulation of the pancreas is present. No adrenal nodule. The renal parenchyma is relatively high in attenuation which may represent persistent enhancement from previous intravenous contrast ag ent administration. Correlate clinically for poor renal function. There is moderately severe athero sclerotic disease. Redemonstration of multiple small mesenteric lymph nodes and mesenteric fat stran ding similar to that previously seen. Stomach is grossly within normal limits. What appears represent the appendix has no evidence of infl ammation. There are a few distal colon diverticula. Several portions of the colon have mild fluid d istension including the rectum. There may be mild paracolic fat stranding. Small bowel caliber is n ormal. The patient has underwent previous total right hip arthroplasty which leads artifact obscurin g detail at certain portions of the anatomic pelvis. The visualized urinary bladder is grossly unrem arkable. There is no preet ascites identified. Abdominal wall is intact without herniation. The bones are demineralized. There is diffuse degenera tive disc and facet disease of the spine. At L1/L2, there are mild endplate erosions which are new s blanca the prior study. This may be related to severe degenerative disc disease. Diskitis and endplat e osteomyelitis at this level cannot be excluded. Recommend correlation with patient history and phy sical exam. MRI is available if indicated. Lung bases are grossly clear. There is no pneumoperiton eum. IMPRESSION: 1. At L1/L2, there are mild endplate erosions which are new since the prior study. This may be rela mehran to severe degenerative disc disease. Diskitis and endplate osteomyelitis at this level cannot be excluded. Recommend correlation with patient history and physical exam. MRI is available if indica mehran. 2. Findings which can be consistent with mild active colitis. Consider infectious or ischemic etiol ogies. 3. Possible persistent enhancement of the renal parenchyma. Correlate clinically for poor renal fun ction. 4. Early cirrhotic architecture of the liver. Mild splenomegaly. 5. Moderately severe atherosclerotic disease. 6. Multiple small mesenteric lymph nodes and stranding of the mesenteric fat similar to that previou sly seen. The general differential diagnosis for a reed appearance of the mesentery includes pannic ulitis, idiopathic and other nonspecific causes of mesenteric edema. Malignant causes reported include lymphoma.
[2020-04-04] MEDS ORDERED: ROCEPHIN 1 GM/50 ML D5W 1 GM/50 ML BAG IV STA (08:20)
[2020-04-04 09:02] LABS: BILIRUBIN,URINE Negative (NEGATIVE); CLARITY,URINE Clear (CLEAR); COLOR,URINE Yellow (YELLOW); GLUCOSE, URINE (UA) Negative (NEGATIVE); KETONES,URINE Negative (NEGATIVE); LEUKOCYTE ESTERASE ,URINE Negative (NEGATIVE); NITRITE,URINE Negative (NEGATIVE); PH,URINE 5.5 (5-9); PROTEIN,URINE Trace (NEGATIVE); URINE, BLOOD Trace-lysed (NEGATIVE); UROBILINOGEN,URINE 0.2 (0.2)
[2020-04-04 09:06] LABS: BACTERIA,URINE TRACE (NOT PRESENT); GRANULAR CASTS,URINE 0-2 (NOT PRESENT); HYALINE CASTS, URINE 0-2 (NOT PRESENT); RENAL EPITHELIAL CELLS,URINE 0-2 (NOT PRESENT); SQUAMOUS EPITHELIAL CELL,UR 0-2 (0-5); URINE RBC, MICROSCOPIC 0-2 (0-2); URINE WBC, MICROSCOPIC 0-2 (0-2)
[2020-04-04] MEDS ORDERED: TYLENOL PO SCH ×2 (09:30→10:00)
[2020-04-04] MEDS ORDERED: ZOFRAN 4 MG/2 ML IVP SCH (09:30)
[2020-04-04] MEDS ORDERED: SODIUM CHLORIDE 1,000 ML IV STA (09:36)
[2020-04-04] MEDS ORDERED: PROTONIX IV IVP SCH (10:00)
[2020-04-04 10:35] VITALS: BMI 25.8
[2020-04-04] MEDS ORDERED: NITROSTAT SL PRN (11:04)
[2020-04-04] MEDS ORDERED: ATROPINE SULFATE PFS IVP PRN (11:04)
[2020-04-04] MEDS ORDERED: VISTARIL INJ IM PRN (11:04)
[2020-04-04] MEDS: PROTONIX IV IVP SCH ×2 (11:50→20:32)
[2020-04-04 12:07] LABS: CREATINE KINASE 35.1 U/L (30-135)
[2020-04-04 12:39] LABS: TROPONIN I < 0.012 ng/ml (0.0000-0.120)
[2020-04-04] MEDS: DEXTROSE 5%-1/2NS IV SOLUTION 1,000 ML IV SCH (12:52)
--- NOTE | 2020-04-04 12:54 | HP ---
DATE OF SERVICE: 04/04/2020 REASON FOR HOSPITALIZATION/HISTORY OF PRESENT ILLNESS: This is a 74 year old white female who is a new patient to us. She was previously a patient of Dr. Carolina. She presented to the emergency room today complaining of nausea, vomiting and her heart racing. She also stated that her back was hurting. PAST MEDICAL HISTORY: Polyarthritis Diabetes Mellitus type 2 Dyslipidemia Hard of hearing Hypertension Hypothyroidism History of [place] Restless leg syndrome Urinary urgency Insomnia Coronary artery disease History of pancytopenia, sees Dr. Matute B12 deficiency Elevated liver enzymes PAST SURGICAL HISTORY: Partial thyroidectomy Retinal repair times two History of liver biopsy Cataract extraction CABG 2008, triple bypass Status post hysterectomy Right hip replacement in 2015 Fatty liver with cirrhosis REVIEW OF SYSTEMS: CONSTITUTIONAL: No night sweats. No fatigue, malaise, lethargy. No fever or chills. HEENT: Eyes: No visual changes. No eye pain. No eye discharge. ENT: No runny nose. No epistaxis. No sinus pain. No sore throat. No odynophagia. No ear pain. No congestion. RESPIRATORY: No cough, no congestion. No hemoptysis. No shortness of breath. CARDIOVASCULAR: No angina symptoms. No CHF symptoms. No atypical chest pain for CAD. Palpitations. No PND. No orthopnea. GASTROINTESTINAL: No abdominal pain. Nausea and vomiting. No diarrhea or constipation. No hematemesis. No hematochezia. GENITOURINARY: No urgency. No frequency. No dysuria. No hematuria. No obstructive symptoms. No discharge. No pain. No significant abnormal bleeding. MUSCULOSKELETAL: No musculoskeletal pain. No joint swelling. No arthritis. NEUROLOGICAL: No headache. No neck pain. No syncope. No seizures. No dizziness. PSYCHIATRIC: Not anxious. No depression. No suicidal thoughts. No homicidal thoughts. SKIN: No rash. No lesions. No wounds. ENDOCRINE: No unexplained weight loss. No weight gain. HEMATOLOGIC/LYMPHATIC: No anemia. No purpura. No petechiae. No prolonged or excessive bleeding. No palpable lymph nodes. PERSONAL/FAMILY/SOCIAL HISTORY: She is a non-smoker. No alcohol or illicit drug use. She lives alone. She had EKD and colonoscopy in 2018. MEDICATIONS: Acetaminophen 500mg PO PRN Losartan 50mg PO BID Amlodipine 5mg PO daily Metoprolol succinate 50mg PO Q daily Pravastatin 40mg PO QHS Levothyroxine 100mcg PO daily Metformin 1000mg PO BID Toviaz 4mg PO BEDTIME Myrbetriq 25mg PO daily ALLERGIES: Penicillin Morphine Sulfa PHYSICAL EXAMINATION: VITAL SIGNS: Temperature 98.2, heart rate 101, respiratory rate 17, blood pressure 153/77, pulse ox 98% HEENT: Head normocephalic, atraumatic. Eyes: Extraocular muscles are intact. Pupils are equal, round and reactive to light and accommodation. Ears: No lesions. Nose appeared normal. Throat: No exudate or erythema. NECK: Supple. No JVD, no carotid bruit. No lymphadenopathy or thyromegaly. LUNGS: Diminished breath sounds bilaterally. Clear to auscultation. Percussion note normal. Chest symmetrical. HEART: Regular heart rate. S1, S2, no S3. No murmur. No cyanosis or clubbing. No ascites. Pulses: Dorsalis pedis and posterior tibial pulses +1 to +2 bilaterally. ABDOMEN: Soft. Nontender. Bowel sounds active. No CVA tenderness. No mass felt. EXTREMITIES: No edema. Full range of motion of all extremities, equal. NEUROLOGIC: No focal deficit. Cranial nerves II through XII are grossly intact. No headache, no double vision or headache. SKIN: Not dry. Intact. Turgor - normal. LYMPHATIC: No palpable lymph nodes/no lymphedema. MUSCULOSKELETAL: Normal joints with no swelling. Muscle tone is normal. LABS: CT of T spine shows no acute compression fracture, multilevel degenerative disease of the T spine. Ct of the abdomen and pelvis shows that L1 and L2 there is mild endplate erosions which are new, maybe related to severe degenerative disc disease.Findings consistent with mild active colitis. Cirrhotic architecture of the liver. Mild splenomegaly, severe atherosclerotic disease, multiple small mesenteric lymph nodes. Urine showed trace protein is otherwise normal. TSH is 0.061, Free T4 is 1.38. Chest x-ray shows no acute cardiopulmonary process. CT of the L spine shows no acute compression fracture, multilevel moderate to severe degenerative disc disease with some neural foraminal narrowing. May need MRI. Sodium 139, potassium 3.43, BUN 33, creatinine 1.54, AST 30, ALT 14, Total protein 6.86, Amylase 36, Lipase 23.8, WBC 4.37, hgb 9.2, hct 26.9, plt count 79,000. ASSESSMENT: 1. Dehydration 2. Acute colitis 3. Palpitations 4. Anemia 5. History of pancytopenia 6. Hypokalemia 7. Coronary artery disease 8. Hypertension PLAN: 1. We will admit 2. Routine telemetry orders 3. CBC and CMP daily 4. Continue all home medications 5. Hold Levothyroxine as TSH is low maybe contributing to palpitations 6. Zofran 4mg IV Q 6 hours PRN 7. Normal saline at 83cc an hour 8. Continue all home medications 9. BRAT diet 10.Will follow closely. TIME SPENT: More than 70 minutes. MTDD
[2020-04-04] MEDS: ZOFRAN 4 MG/2 ML IVP SCH ×2 (13:48→20:31)
[2020-04-04] MEDS: FLAGYL PO SCH ×2 (13:48→20:32)
[2020-04-04] MEDS: GLUCOPHAGE PO SCH (17:27)
[2020-04-04] MEDS: TYLENOL PO PRN (18:10)
[2020-04-04 19:49] LABS: CREATINE KINASE 39.9 U/L (30-135)
[2020-04-04 20:02] LABS: TROPONIN I < 0.012 ng/ml (0.0000-0.120)
[2020-04-04] MEDS: PRAVACHOL PO SCH (20:32)
[2020-04-04] MEDS: COZAAR PO SCH (20:32)
[2020-04-05] MEDS: TYLENOL PO PRN ×2 (00:48→22:41)
[2020-04-05] MEDS: DEXTROSE 5%-1/2NS IV SOLUTION 1,000 ML IV SCH ×3 (00:48→23:35)
[2020-04-05 05:05] LABS: BASOPHILS % (AUTO) 0.4 % (0.0-3.0); HEMATOCRIT 24.9 % (37.0-47.0); HEMOGLOBIN 8.3 g/dl (12.0-16.0); IMMATURE GRANULOCYTE % (AUTO) 0.4 % (0.0-5.0); LYMPHOCYTES # (AUTO) 1.1 K/uL (0.60-3.4); LYMPHOCYTES % (AUTO) 39.6 (10.0-50.0); MEAN CORPUSCULAR HEMOGLOBIN 30.2 pg (27.0-31.0); MEAN CORPUSCULAR HGB CONC 33.3 (31.8-35.4); MEAN CORPUSCULAR VOLUME 90.5 fl (81.0-99.0); MONOCYTES # (AUTO) 0.2 K/uL (0.4-2.0); MONOCYTES % (AUTO) 7.9 (0-10); NEUTROPHILS # (AUTO) 1.4 K/ul (2.0-6.9); NEUTROPHILS % (AUTO) 51.7 % (42.2-75.2); PLATELET COUNT 66 10^3/uL (140-440); RDW COEFFICIENT OF VARIATION 13.8 % (11.6-14.8); RED BLOOD COUNT 2.75 10^6/ul (4.20-5.40); WHITE BLOOD COUNT 2.78 K/ul (4.6-10.2)
[2020-04-05 05:18] LABS: ALANINE AMINOTRANSFERASE 11.8 U/L (0-35); ALBUMIN 2.98 g/dL (3.5-5.0); ASPARTATE AMINO TRANSFERASE 21.5 U/L (14-36); BILIRUBIN,TOTAL < 0.10 mg/dL (0.2-1.3); BLOOD UREA NITROGEN 19.7 mg/dL (7-17); CALCIUM 7.95 mg/dL (8.4-10.2); CARBON DIOXIDE 15.6 mmol/L (22-30.0); CHLORIDE 116.6 mmol/L (98-107); CREATININE 1.34 mg/dL (0.60-1.30); GLUCOSE 129.8 mg/dL (74-106); POTASSIUM 3.37 mmol/L (3.5-5.1); SODIUM 139.1 mmol/L (134.5-145); TOTAL PROTEIN 5.64 g/dL (6.3-8.2)
[2020-04-05] MEDS: SYNTHROID PO SCH (05:41)
[2020-04-05] MEDS: ZOFRAN 4 MG/2 ML IVP SCH ×3 (05:41→21:17)
[2020-04-05] MEDS: FLAGYL PO SCH ×3 (05:42→20:17)
[2020-04-05] MEDS ORDERED: CIPRO PO SCH (06:30)
--- NOTE | 2020-04-05 08:43 | PCM.PROG ---
Attending Provider: ATTENDING PROVIDER: Dr. ROSIO COTO This patient is seen with Margy Bobby, Nurse Practitioner. DATE OF SERVICE: 04/05/20 SUBJECTIVE: This 74 year old /WHITE F was hospitalized 04/04/20. The patient is resting comfortably. No fever. Still some nausea this morning. Hgb down one point likely due to hemodilution. Still with diarrhea through the night. Kidney function slightly improved. Not complaining of palpitation through the night. REVIEW OF SYSTEMS: CONSTITUTIONAL: No night sweats. No fatigue, malaise, lethargy. No fever or chills. Weakness. HEENT: Eyes: No visual changes. No eye pain. No eye discharge. ENT: No runny nose. No epistaxis. No sinus pain. No odynophagia. No congestion. RESPIRATORY: No cough, no congestion. No hemoptysis. No shortness of breath. CARDIOVASCULAR: No angina symptoms. No CHF symptoms. No atypical chest pain for CAD. Palpitations. No orthopnea.. GASTROINTESTINAL: No abdominal pain. No nausea or vomiting. Diarrhea. No hematemesis. No hematochezia. GENITOURINARY: No urgency. No frequency. No dysuria. No hematuria. No obstructive symptoms. No discharge. No pain. No significant abnormal bleeding. MUSCULOSKELETAL: No musculoskeletal pain; no joint swelling. NEUROLOGICAL: Awake, alert, oriented to time, place and person. No headache. No neck pain. No syncope. No seizures. No dizziness. PSYCHIATRIC: Not anxious. No depression. No suicidal thoughts. No homicidal thoughts. SKIN: No rash. No lesions. No wounds. ENDOCRINE: No unexplained weight loss. No weight gain. HEMATOLOGIC/LYMPHATIC: No anemia. No purpura. No petechiae. No prolonged or excessive bleeding. No palpable lymph nodes. PHYSICAL EXAMINATION: GENERAL: The patient is awake, alert and oriented, lying in bed in no distress. VITAL SIGNS: Temperature 97.7 F, Pulse 66, Respiratory Rate 18, BP 143/59, Pulse Ox 99% HEENT: Head normocephalic, atraumatic. Eyes: Extraocular muscles are intact. Pupils are equal, round and reactive to light and accommodation. Ears: No lesions. Nose appeared normal. Throat: No exudate or erythema. NECK: Supple. No JVD, no carotid bruit. No lymphadenopathy or thyromegaly. LUNGS: Diminished breath sounds. Clear to auscultation. Percussion note normal. Chest symmetrical. HEART: S1, S2, no S3. No murmurs. No cyanosis or clubbing. No ascites. Pulses: Dorsalis pedis and posterior tibial pulses +1 to +2 both sides. ABDOMEN: Soft. Non-tender. Bowel sounds active. No CVA tenderness. No mass felt. EXTREMITIES: No edema. Full range of motion of all extremities, equal. NEUROLOGIC: No focal deficit. Cranial nerves II through XII are grossly intact. No headache, no double vision or headache. SKIN: Not dry. Intact. Turgor-normal. LYMPHATIC: No palpable lymph nodes/no lymphedema. MUSCULOSKELETAL: Normal joints with no swelling. Muscle tone is normal. LAB REVIEW: 04/05/20 04:44 04/05/20 04:44 04/05/20 04:44: Sodium 139.1, Potassium 3.37 L, Chloride 116.6 H, Carbon Dioxide 15.6 L, Anion Gap 10.27, BUN 19.7 H, Creatinine 1.34 H, Estimated GFR (MDRD) 38.00, BUN/Creatinine Ratio 14.70, Glucose 129.8 H, Calcium 7.95 L, Total Bilirubin < 0.10 L, AST 21.5, ALT 11.8, Alkaline Phosphatase 48.0 L, Total Prot ein 5.64 L, Albumin 2.98 L, Globulin 2.66, Albumin/Globulin Ratio 1.12 04/05/20 04:44: WBC 2.78 L, RBC 2.75 L, Hgb 8.3 L, Hct 24.9 L, MCV 90.5, MCH 30.2, MCHC 33.3, RDW Coeff of [place] 13.8, Plt Count 66 L, Immature Gran % (Auto) 0.4, Neut % (Auto) 51.7, Lymph % (Auto) 39.6, [place] % (Auto) 7.9, Eos % (Auto) 0.0, Baso % (Auto) 0.4, Neut # (Auto) 1.4 L, Lymph # (Auto) 1.1, [place] # (Auto) 0.2 L, Eos # (Auto) 0.0, Baso # (Auto) 0.0, Immature Gran # (Auto) 0.0 04/04/20 19:30: Total Creatine Kinase 39.9, Troponin I < 0.012 04/04/20 11:23: Total Creatine Kinase 35.1, Troponin I < 0.012 04/04/20 08:45: Urine Color Yellow, Urine Clarity Clear, Urine pH 5.5, Ur Specific [place] 1.020, Urine Protein Trace H, Urine Glucose (UA) Negative, Urine Ketones Negative, Urine Blood Trace-lysed, Urine Nitrite Negative, Urine Bilirubin Negative, Urine Urobilinogen 0.2, Ur Leukocyte Esterase Negative, Ur ine Microscopic RBC 0-2, Urine Microscopic WBC 0-2, Ur Squamous Epith Cells 0-2, Ur Renal Epithelial Cell 0-2, Urine Bacteria Trace, Hyaline Casts 0-2, Granular Casts 0-2 ASSESSMENT: Please see below. 1. Acute colitis 2. Heart Palpitation 3. Medicine causing Hyperthyroidism 4. Dehydration, improved 5. Renal Azotemia 6. Hypokalemia 7. Anemia 8. History of pancytopenia PLAN: 1. Potassium 20meq BID 2. 2D echo 3. Continue IV fluids Plan and coordination of the patient's care discussed in the presence of [employer] and nurse. SCRIBED BY: LORETA VALDIVIA Warehouse Assembly Worker scribed while in presence of service performed by Dr. Coto/Margy Bobby APRN on 04/05/20 ([id number])
[2020-04-05] MEDS ORDERED: ROCEPHIN 1 GM/50 ML D5W 1 GM/50 ML BAG IV SCH ×2 (09:00)
[2020-04-05] MEDS ORDERED: NORVASC PO SCH (09:00)
[2020-04-05] MEDS ORDERED: VESICARE PO SCH (09:00)
[2020-04-05] MEDS: GLUCOPHAGE PO SCH ×2 (09:06→16:52)
[2020-04-05] MEDS: MYRBETRIQ PO SCH (09:06)
[2020-04-05] MEDS: PROTONIX IV IVP SCH ×2 (09:06→21:17)
[2020-04-05] MEDS: COZAAR PO SCH ×2 (09:09→20:17)
[2020-04-05] MEDS: ASPIRIN EC PO SCH (09:09)
[2020-04-05] MEDS: TOPROL XL PO SCH (09:10)
[2020-04-05] MEDS: K-DUR PO SCH ×2 (09:10→16:53)
[2020-04-05] MEDS: PRAVACHOL PO SCH (20:17)
[2020-04-06] MEDS: ZOFRAN 4 MG/2 ML IVP SCH ×3 (05:37→21:09)
[2020-04-06] MEDS: SYNTHROID PO SCH (05:37)
[2020-04-06] MEDS: FLAGYL PO SCH ×3 (05:37→20:06)
[2020-04-06] MEDS: CIPRO PO SCH (05:37)
[2020-04-06 05:46] LABS: BASOPHILS % (AUTO) 0.4 % (0.0-3.0); HEMATOCRIT 26.6 % (37.0-47.0); HEMOGLOBIN 8.7 g/dl (12.0-16.0); IMMATURE GRANULOCYTE % (AUTO) 0.4 % (0.0-5.0); MEAN CORPUSCULAR HEMOGLOBIN 29.6 pg (27.0-31.0); MEAN CORPUSCULAR HGB CONC 32.7 (31.8-35.4); MEAN CORPUSCULAR VOLUME 90.5 fl (81.0-99.0); MONOCYTES # (AUTO) 0.2 K/uL (0.4-2.0); MONOCYTES % (AUTO) 5.7 (0-10); NEUTROPHILS # (AUTO) 1.6 K/ul (2.0-6.9); NEUTROPHILS % (AUTO) 56.5 % (42.2-75.2); PLATELET COUNT 78 10^3/uL (140-440); RDW COEFFICIENT OF VARIATION 13.8 % (11.6-14.8); RED BLOOD COUNT 2.94 10^6/ul (4.20-5.40); WHITE BLOOD COUNT 2.81 K/ul (4.6-10.2)
[2020-04-06 05:58] LABS: ALANINE AMINOTRANSFERASE 11.8 U/L (0-35); ALBUMIN 3.51 g/dL (3.5-5.0); ALKALINE PHOSPHATASE 45.5 U/L (53-141); ASPARTATE AMINO TRANSFERASE 23.2 U/L (14-36); BILIRUBIN,TOTAL 0.29 mg/dL (0.2-1.3); BLOOD UREA NITROGEN 14.3 mg/dL (7-17); CALCIUM 8.42 mg/dL (8.4-10.2); CARBON DIOXIDE 17.3 mmol/L (22-30.0); CHLORIDE 114.5 mmol/L (98-107); CREATININE 1.25 mg/dL (0.60-1.30); GLUCOSE 117.2 mg/dL (74-106); POTASSIUM 3.57 mmol/L (3.5-5.1); SODIUM 139.5 mmol/L (134.5-145); TOTAL PROTEIN 6.37 g/dL (6.3-8.2)
[2020-04-06] MEDS: GLUCOPHAGE PO SCH ×2 (08:51→16:54)
[2020-04-06] MEDS: MYRBETRIQ PO SCH (08:51)
[2020-04-06] MEDS: K-DUR PO SCH ×2 (08:51→16:54)
[2020-04-06] MEDS: TOPROL XL PO SCH (08:51)
[2020-04-06] MEDS: COZAAR PO SCH ×2 (08:51→20:05)
[2020-04-06] MEDS: ASPIRIN EC PO SCH (08:51)
[2020-04-06] MEDS: NORVASC PO SCH (08:51)
[2020-04-06] MEDS: PROTONIX IV IVP SCH ×2 (09:38→21:09)
[2020-04-06] MEDS: DEXTROSE 5%-1/2NS IV SOLUTION 1,000 ML IV SCH ×2 (10:52→21:57)
--- NOTE | 2020-04-06 13:54 | RS.PTINEVL ---
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 States she continues with some nausea. - Level of function Prior to this admission, the patient could do the following:: Independent Selfcare, Independent ADL's, Independent Ambulation, Drive, Participated in Social Activities Outside home Current Level of Function: Partially Dependent Current Equipment Used at Home: rollator rwx Interventions - Objective Patient Orientation: Person, Place, Situation Current Interventions: IV's, Telemetry Range of Motion - ROM Right Upper Extremity AROM: WFL's Left Upper Extremity AROM: WFL's Right Lower Extremity AROM: WFL's Left Lower Extremity AROM: WFL's Muscle Strength - Muscle Strength Right Upper Extremity Strength: Mild Weakness (grossly 4/5 (c/o pain with R shld)) Left Upper Extremity Strength: Mild Weakness (grossly 4/5) Right Lower Extremity Strength: Mild Weakness (hip flex 4/5, knee flex 4+/5, ext 4/5, ankle DF/PF 4/5) Left Lower Extremity Strength: Mild Weakness (hip flex 4/5, knee flex 4+/5, ext 4/5, ankle DF/PF 4/5) Sensation - Sensation Right Upper Extremity Sensation: Intact/Normal Left Upper Extremity Sensation: Intact/Normal Right Lower Extremity Sensation: Intact/Normal Left Lower Extremity Sensation: Intact/Normal Palpation Palpation Findings: Tenderness Comments:: tenderness noted in lumbar area Balance - Sitting Balance and Reactions Static Sitting Balance: Good Dynamic Sitting Balance: Fair - Standing Balance and Reactions Static Standing Balance: Fair Dynamic Standing Balance: Poor Standing Equilibrium Reactions: Delayed Left, Delayed Right Standing Protective Reactions: Delayed Left, Delayed Right Functional Mobility - Bed Mobility Rolling R/L: Independent Supine to Sit: CGA - Transfers Sit to Stand: Supervision, CGA Stand to Sit: Supervision, CGA - Safety Awareness Safety Awareness: Fair HENNA INDEX SCORE: n/t Ambulation - Ambulation Assistive Device Used: Rolling Walker Orthotic/Prosthetic Device: No Distance: 200ft Assistance needed with Ambulation: CGA Gait Deviations: Narrow Based gait, Forward posture, Short stride Factors Affecting Ambulation: Decreased Balance, Weakness, Decreased Safety, Limited Endurance Treatment time - Time with patient Length of Evaluation: 19 Total treatment time: 30 Patient Education - Education Patient Education: Activity Modification, Education of Plan of Care Teaching Recipient: Patient Teaching Methods: Discussion Comments: discussion regarding POC Assessment - Assessment Problem List:: Decreased level of function, Requires training/education, Decreased safety/Risk of falls, Weakness Rehab Potential: Fair Further Therapy Indicated?: Yes Candidate for Swing Bed for Therapy Services?: Feel pt would not be a candidate for swing bed due to high functional level. Evaluation Complexity: HISTORY: Medium, EXAM OF BODY SYSTEMS: Medium, CLINICAL PRESENTATION: Medium, CLINICAL DECISION MAKING: Medium Patient's Goal(s): go home as independent as possible Short Term Goals GOAL #1: Sup to/from sit independent Goal to be met by: 04/07/20 GOAL #2: sit to/from stand SBA Goal to be met by: 04/07/20 GOAL #3: pt amb 200ft with RWX with SBA Goal to be met by: 04/07/20 GOAL #4: Improve dyn stand balance fair+ Goal to be met by: 04/07/20 Compliance Review Officer Goals GOAL #1: Transfer sit to/from stand independently Goal to be met by: 04/08/20 GOAL #2: pt amb functional household distances with rwx with no LOB independently Goal to be met by: 04/08/20 GOAL #3: Improve strength BLE 4+/5 Goal to be met by: 04/08/20 Plan Plan of Care: Therapeutic EX, Therapeutic Activity Other:: gait training Frequency of Treatment: 1-2 X day, as tolerated Duration of Treatment: 4 days Anticipated Discharge Destination: Home Treatment Diagnosis (ICD 10 Codes): difficulty walking R26.2. impaired balance R 26.81. muscle weakness M62.81 Has the Physician been added for Co-signature?: Yes
--- NOTE | 2020-04-06 14:16 | PN ---
DATE OF SERVICE: 04/04/20 SUBJECTIVE: The patient was seen and examined in Room 116. The patient has been hospitalized with palpitations and had colitis type of symptoms. She was seen by [facility] ER two days ago and had a workup. C. diff workup was negative. She had CT scan of the abdomen which showed colitis. REVIEW OF SYSTEMS: CONSTITUTIONAL: No night sweats. No fatigue, malaise, lethargy. No fever or chills. HEENT: Eyes: No visual changes. No eye pain. No eye discharge. ENT: No runny nose. No epistaxis. No sinus pain. No sore throat. No odynophagia. No congestion. RESPIRATORY: No cough, no congestion. No hemoptysis. No shortness of breath. CARDIOVASCULAR: No angina symptoms. No CHF symptoms. No atypical chest pain for CAD. No palpitations. No PND. No orthopnea. GASTROINTESTINAL: Mild abdominal discomfort. No nausea or vomiting. No diarrhea or constipation. No hematemesis. No hematochezia. GENITOURINARY: No urgency. No frequency. No dysuria. No hematuria. No obstructive symptoms. No discharge. No pain. No significant abnormal bleeding. MUSCULOSKELETAL: No musculoskeletal pain; no joint swelling. NEUROLOGICAL: No headache. No neck pain. No syncope. No seizures. No dizziness. PSYCHIATRIC: Not anxious. No depression. No suicidal thoughts. No homicidal thoughts. SKIN: No rash. No lesions. No wounds. ENDOCRINE: No unexplained weight loss. No weight gain. HEMATOLOGIC/LYMPHATIC: No anemia. No purpura. No petechiae. No prolonged or excessive bleeding. No palpable lymph nodes. PHYSICAL EXAMINATION: HEENT: Head normocephalic, atraumatic. Eyes: Extraocular muscles are intact. Pupils are equal, round and reactive to light and accommodation. Ears: No lesions. Nose appeared normal. Throat: No exudate or erythema. NECK: Supple. No JVD, no carotid bruit. No lymphadenopathy or thyromegaly. LUNGS: Clear to auscultation. Percussion note normal. Chest symmetrical. HEART: S1, S2, no S3. No murmurs. No cyanosis or clubbing. No ascites. Pulses: Dorsalis pedis and posterior tibial pulses +1 to +2 bilaterally. ABDOMEN: Mild abdominal discomfort. Soft. Bowel sounds active. No CVA tenderness. No mass felt. EXTREMITIES: No edema. Full range of motion of all extremities, equal. NEUROLOGIC: No focal deficit. Cranial nerves II through XII are grossly intact. No headache, no double vision or headache. SKIN: Not dry. Intact. Turgor - normal. LYMPHATIC: No palpable lymph nodes/no lymphedema. MUSCULOSKELETAL: Normal joints with no swelling. Muscle tone is normal. ASSESSMENT: Cardiovascular status is stable. She had palpitations. EKG shows sinus rhythm with borderline tachycardia. The patient does not have any evidence of atrial flutter or fib. Cardiovascular status with normal cardiac markers. PLAN: 1. Give IV fluids because of mild dehydration with early renal azotemia. 2. The patient will be given Cipro and Flagyl. 3. Rocephin will be discontinued. CONDITION: Otherwise stable. TIME SPENT: More than 30 minutes. Plan and coordination of the patient's care discussed in the presence of nurse. MARHSA
--- NOTE | 2020-04-06 14:44 | PN ---
DATE OF SERVICE: 04/05/20 SUBJECTIVE: Ms. Mari Davidson was seen with the nurse practitioner. The patient's condition is stable. Cardiovascular status is stable. Colitis seems to be resolving. She has less abdominal discomfort. Appetite is still not up to power but she is trying to eat three meals. Condition stable. Cardiovascular status is stable. Covid is going to be done tomorrow. TIME SPENT: More than 30 minutes. Plan and coordination of the patient's care discussed in the presence of nurse. MARSHA
[2020-04-06] MEDS: PRAVACHOL PO SCH (20:05)
[2020-04-06] MEDS: TYLENOL PO PRN (21:57)
[2020-04-07 04:44] LABS: BASOPHILS % (AUTO) 0.6 % (0.0-3.0); IMMATURE GRANULOCYTE % (AUTO) 0.3 % (0.0-5.0); LYMPHOCYTES # (AUTO) 1.2 K/uL (0.60-3.4); LYMPHOCYTES % (AUTO) 35.9 (10.0-50.0); MEAN CORPUSCULAR HGB CONC 33.3 (31.8-35.4); MEAN CORPUSCULAR VOLUME 89.9 fl (81.0-99.0); MONOCYTES # (AUTO) 0.2 K/uL (0.4-2.0); MONOCYTES % (AUTO) 6.8 (0-10); NEUTROPHILS # (AUTO) 1.8 K/ul (2.0-6.9); NEUTROPHILS % (AUTO) 56.4 % (42.2-75.2); PLATELET COUNT 66 10^3/uL (140-440); RDW COEFFICIENT OF VARIATION 13.9 % (11.6-14.8); RED BLOOD COUNT 2.67 10^6/ul (4.20-5.40); WHITE BLOOD COUNT 3.23 K/ul (4.6-10.2)
[2020-04-07 04:56] LABS: ALANINE AMINOTRANSFERASE 12.6 U/L (0-35); ALBUMIN 3.09 g/dL (3.5-5.0); ALKALINE PHOSPHATASE 43.7 U/L (53-141); ASPARTATE AMINO TRANSFERASE 26.9 U/L (14-36); BILIRUBIN,TOTAL 0.21 mg/dL (0.2-1.3); BLOOD UREA NITROGEN 11.2 mg/dL (7-17); CALCIUM 8.3 mg/dL (8.4-10.2); CARBON DIOXIDE 16.8 mmol/L (22-30.0); CHLORIDE 114.5 mmol/L (98-107); CREATININE 1.03 mg/dL (0.60-1.30); GLUCOSE 119.4 mg/dL (74-106); SODIUM 136.8 mmol/L (134.5-145); TOTAL PROTEIN 5.69 g/dL (6.3-8.2)
[2020-04-07] MEDS: FLAGYL PO SCH ×3 (05:39→20:30)
[2020-04-07] MEDS: SYNTHROID PO SCH (05:40)
[2020-04-07] MEDS: CIPRO PO SCH (05:40)
[2020-04-07] MEDS: ZOFRAN 4 MG/2 ML IVP SCH ×2 (05:45→13:14)
[2020-04-07] MEDS: DEXTROSE 5%-1/2NS IV SOLUTION 1,000 ML IV SCH (06:18)
[2020-04-07] MEDS: MYRBETRIQ PO SCH (09:03)
[2020-04-07] MEDS: ASPIRIN EC PO SCH (09:03)
[2020-04-07] MEDS: K-DUR PO SCH ×2 (09:04→17:08)
[2020-04-07] MEDS: GLUCOPHAGE PO SCH ×2 (09:04→17:09)
[2020-04-07] MEDS: TOPROL XL PO SCH (09:04)
[2020-04-07] MEDS: COZAAR PO SCH ×2 (09:04→20:31)
[2020-04-07] MEDS: NORVASC PO SCH (09:06)
--- NOTE | 2020-04-07 09:51 | PCM.PROG ---
Attending Provider: ATTENDING PROVIDER: Dr. ROSIO COTO DATE OF SERVICE: 04/07/20 SUBJECTIVE: This 74 year old /WHITE F was hospitalized 04/04/20. The patient is hospitalized with colitis and heart palpitations. The patient's condition is improved. Colitis seems to have resolved. She has been on IV fluids. Hemoglobin is 8, started out at 9.5, could be hemodilution. The patient has low platelets and WBC count, could be from myelodysplastic syndrome. Will discontinue iIV fluids. REVIEW OF SYSTEMS: CONSTITUTIONAL: No night sweats. No fatigue, malaise, lethargy. No fever or chills. HEENT: Eyes: No visual changes. No eye pain. No eye discharge. ENT: No runny nose. No epistaxis. No sinus pain. No odynophagia. No congestion. RESPIRATORY: No cough, no congestion. No hemoptysis. No shortness of breath. CARDIOVASCULAR: No angina symptoms. No CHF symptoms. No atypical chest pain for CAD. No palpitations. No orthopnea.. GASTROINTESTINAL: Appetite improving. No abdominal pain. No nausea or vomiting. No diarrhea or constipation. No hematemesis. No hematochezia. GENITOURINARY: No urgency. No frequency. No dysuria. No hematuria. No obstructive symptoms. No discharge. No pain. No significant abnormal bleeding. MUSCULOSKELETAL: No musculoskeletal pain; no joint swelling. NEUROLOGICAL: Awake, alert, oriented to time, place and person. No headache. No neck pain. No syncope. No seizures. No dizziness. PSYCHIATRIC: Not anxious. No depression. No suicidal thoughts. No homicidal thoughts. SKIN: No rash. No lesions. No wounds. ENDOCRINE: No unexplained weight loss. No weight gain. HEMATOLOGIC/LYMPHATIC: No anemia. No purpura. No petechiae. No prolonged or exc essive bleeding. No palpable lymph nodes. PHYSICAL EXAMINATION: GENERAL: The patient is awake, alert and oriented, lying/sitting in bed in no distress. VITAL SIGNS: Temperature 97.7 F, Pulse 61, Respiratory Rate 16, BP 140/67, Pulse Ox 97% HEENT: Head normocephalic, atraumatic. Eyes: Extraocular muscles are intact. Pupils are equal, round and reactive to light and accommodation. Ears: No lesions. Nose appeared normal. Throat: No exudate or erythema. NECK: Supple. No JVD, no carotid bruit. No lymphadenopathy or thyromegaly. LUNGS: Decreased breath sounds. Clear to auscultation. Percussion note normal. Chest symmetrical. HEART: S1, S2, no S3. No murmurs. No cyanosis or clubbing. No ascites. Pulses: Dorsalis pedis and posterior tibial pulses +1 to +2 both sides. ABDOMEN: Soft. Non-tender. Bowel sounds active. No CVA tenderness. No mass felt. EXTREMITIES: No edema. Full range of motion of all extremities, equal. NEUROLOGIC: No focal deficit. Cranial nerves II through XII are grossly intact. No headache, no double vision or headache. SKIN: Warm and dry. Intact. Turgor-normal. LYMPHATIC: No palpable lymph nodes/no lymphedema. MUSCULOSKELETAL: Normal joints with no swelling. Muscle tone is normal. LAB REVIEW: 04/07/20 04:30 04/07/20 04:30 04/07/20 04:30: Sodium 136.8, Potassium 4.00, Chloride 114.5 H, Carbon Dioxide 16.8 L, Anion Gap 9.50, BUN 11.2, Creatinine 1.03, Estimated GFR (MDRD) 52.00, BUN/Creatinine Ratio 10.87, Glucose 119.4 H, Calcium 8.30 L, Total Bilirubin 0.21, AST 26.9, ALT 12.6, Alkaline Phosphatase 43.7 L, Total Protein 5.69 L, Albumin 3.09 L, Globulin 2.60, Albumin/Globulin Ratio 1.18 04/07/20 04:30: WBC 3.23 L, RBC 2.67 L, Hgb 8.0 L, Hct 24.0 L, MCV 89.9, MCH 30.0, MCHC 33.3, RDW Coeff of Makeda 13.9, Plt Count 66 L, Immature Gran % (Auto) 0.3, Neut % (Auto) 56.4, Lymph % (Auto) 35.9, [place] % (Auto) 6.8, Eos % (Auto) 0.0, Baso % (Auto) 0.6, Neut # (Auto) 1.8 L, Lymph # (Auto) 1.2, [place] # (Auto) 0.2 L, Eos # (Auto) 0.0, Baso # (Auto) 0.0, Immature Gran # (Auto) 0.0 ASSESSMENT: Please see below. 1. Colitis seems to have resolved clinically. 2. Heart palpitations, one short run of SVT noted approximately 5 seconds otherwise no evidence of any arrhythmias. 3. The patient has a history of CABG. Cardiovascular status is stable PLAN: 1. Will do echocardiogram before discharge. 2. Will continue on Flagyl and Cipro. 3. The patient lives alone and drives a car locally. The patient is already seen by physical therapy and has been walking in the hospital. Plan and coordination of the patient's care discussed in the presence of Corn Detasseler Machine Operator and nurse. CONDITION: Stable SCRIBED BY: KAI BUCIO, Cardiovascular Radiologic Technologist scribed while in presence of service performed by Dr. ROSIO COTO on 04/07/20 ([id number])
[2020-04-07] MEDS: PROTONIX IV IVP SCH ×2 (10:07→20:40)
[2020-04-07] MEDS: TYLENOL PO PRN (11:32)
[2020-04-07] MEDS ORDERED: ZOFRAN 4 MG/2 ML IVP PRN (13:18)
--- NOTE | 2020-04-07 14:32 | PN ---
DATE OF SERVICE: 04/06/20 SUBJECTIVE: The patient was seen and examined today. The patient's overall status is stable. She is feeling better. She is sitting up in the chair and beginning to eat her lunch. She is somewhat hungry. The patient denies any abdominal discomfort, colitis type of symptoms have resolved. She doesn't have any palpitations. PHYSICAL EXAMINATION: GENERAL: The patient is oriented to time, place and person. HEENT: Head normocephalic, atraumatic. Eyes: Extraocular muscles are intact. Pupils are equal, round and reactive to light and accommodation. Ears: No lesions. Nose appeared normal. Throat: No exudate or erythema. NECK: Supple. No JVD, no carotid bruit. No lymphadenopathy or thyromegaly. LUNGS: Clear to auscultation. Percussion note normal. Chest symmetrical. HEART: S1, S2, no S3. No murmurs. No cyanosis or clubbing. No ascites. Pulses: Dorsalis pedis and posterior tibial pulses +1 to +2 bilaterally. ABDOMEN: Soft. Nontender. Bowel sounds active. No CVA tenderness. No mass felt. EXTREMITIES: No edema. Full range of motion of all extremities, equal. NEUROLOGIC: No focal deficit. Cranial nerves II through XII are grossly intact. No headache, no double vision or headache. SKIN: Not dry. Intact. Turgor - normal. LYMPHATIC: No palpable lymph nodes/no lymphedema. MUSCULOSKELETAL: Normal joints with no swelling. Muscle tone is normal. LABS: Are all acceptable. The patient's telemetry didn't show any arrhythmias. Cardiovascular status stable. ASSESSMENT: 1. COLITIS AND DEHYDRATION SEEMS TO HAVE RESOLVED. PLAN: 1. The patient will have echocardiogram to evaluate her palpitation type of symptoms. 2. Decreasing the dose of Synthroid and treating colitis should help. TIME SPENT: More than 30 minutes. Plan and coordination of the patient's care discussed in the presence of nurse. MARSHA
[2020-04-07] MEDS: PRAVACHOL PO SCH (20:31)
[2020-04-07 22:07] VITALS: TEMP 97.9
[2020-04-08 04:52] LABS: BASOPHILS % (AUTO) 0.5 % (0.0-3.0); HEMATOCRIT 26.2 % (37.0-47.0); HEMOGLOBIN 8.7 g/dl (12.0-16.0); IMMATURE GRANULOCYTE % (AUTO) 0.7 % (0.0-5.0); LYMPHOCYTES # (AUTO) 1.3 K/uL (0.60-3.4); LYMPHOCYTES % (AUTO) 31.2 (10.0-50.0); MEAN CORPUSCULAR HEMOGLOBIN 30.3 pg (27.0-31.0); MEAN CORPUSCULAR HGB CONC 33.2 (31.8-35.4); MEAN CORPUSCULAR VOLUME 91.3 fl (81.0-99.0); MONOCYTES # (AUTO) 0.3 K/uL (0.4-2.0); MONOCYTES % (AUTO) 6.8 (0-10); NEUTROPHILS # (AUTO) 2.5 K/ul (2.0-6.9); NEUTROPHILS % (AUTO) 60.8 % (42.2-75.2); PLATELET COUNT 76 10^3/uL (140-440); RED BLOOD COUNT 2.87 10^6/ul (4.20-5.40); WHITE BLOOD COUNT 4.13 K/ul (4.6-10.2)
[2020-04-08 05:06] LABS: ALANINE AMINOTRANSFERASE 16.3 U/L (0-35); ALBUMIN 3.4 g/dL (3.5-5.0); ALKALINE PHOSPHATASE 51.4 U/L (53-141); ASPARTATE AMINO TRANSFERASE 29.9 U/L (14-36); BILIRUBIN,TOTAL 0.3 mg/dL (0.2-1.3); BLOOD UREA NITROGEN 10.1 mg/dL (7-17); CALCIUM 8.59 mg/dL (8.4-10.2); CARBON DIOXIDE 16.8 mmol/L (22-30.0); CHLORIDE 114.9 mmol/L (98-107); CREATININE 1.02 mg/dL (0.60-1.30); GLUCOSE 113.8 mg/dL (74-106); POTASSIUM 4.16 mmol/L (3.5-5.1); TOTAL PROTEIN 6.21 g/dL (6.3-8.2)
[2020-04-08] MEDS: CIPRO PO SCH (05:39)
[2020-04-08] MEDS: FLAGYL PO SCH (05:40)
[2020-04-08] MEDS: SYNTHROID PO SCH (05:40)
[2020-04-08 06:03] VITALS: BP 128/56
[2020-04-08] MEDS: MYRBETRIQ PO SCH (08:40)
[2020-04-08] MEDS: NORVASC PO SCH (08:40)
[2020-04-08] MEDS: K-DUR PO SCH (08:40)
[2020-04-08] MEDS: GLUCOPHAGE PO SCH (08:40)
[2020-04-08] MEDS: TOPROL XL PO SCH (08:40)
[2020-04-08] MEDS: COZAAR PO SCH (08:40)
[2020-04-08] MEDS: ASPIRIN EC PO SCH (08:40)
[2020-04-08] MEDS: PROTONIX IV IVP SCH (09:00)
--- NOTE | 2020-04-08 10:38 | PCM.PROG ---
Attending Provider: ATTENDING PROVIDER: Dr. ROSIO COTO This patient is seen with Margy Bobby, Nurse Practitioner. DATE OF SERVICE: 04/08/20 SUBJECTIVE: This 74 year old /WHITE F was hospitalized 04/04/20. The patient is resting comfortably. Stools have improved. She did have two stools through the night after she had fried tater tots, pie along with ice cream. Stools have thickened, no longer watery. Stools have significant decreased in number. Nausea has resolved. Eating well. REVIEW OF SYSTEMS: CONSTITUTIONAL: No night sweats. No fatigue, malaise, lethargy. No fever or chills. Weakness. HEENT: Eyes: No visual changes. No eye pain. No eye discharge. ENT: No runny nose. No epistaxis. No sinus pain. No odynophagia. No congestion. RESPIRATORY: No cough, no congestion. No hemoptysis. No shortness of breath. CARDIOVASCULAR: No angina symptoms. No CHF symptoms. No atypical chest pain for CAD. No palpitations. No orthopnea.. GASTROINTESTINAL: No abdominal pain. No nausea or vomiting. Diarrhea. No hematemesis. No hematochezia. GENITOURINARY: No urgency. No frequency. No dysuria. No hematuria. No obstructive symptoms. No discharge. No pain. No significant abnormal bleeding. MUSCULOSKELETAL: No musculoskeletal pain; no joint swelling. NEUROLOGICAL: Awake, alert, oriented to time, place and person. No headache. No neck pain. No syncope. No seizures. No dizziness. PSYCHIATRIC: Not anxious. No depression. No suicidal thoughts. No homicidal thoughts. SKIN: No rash. No lesions. No wounds. ENDOCRINE: No unexplained weight loss. No weight gain. HEMATOLOGIC/LYMPHATIC: No anemia. No purpura. No petechiae. No prolonged or excessive bleeding. No palpable lymph nodes. PHYSICAL EXAMINATION: GENERAL: The patient is awake, alert and oriented, lying in bed in no distress. VITAL SIGNS: Temperature 97.9 F, Pulse 61, Respiratory Rate 16, BP 128/56, Pulse Ox 97% HEENT: Head normocephalic, atraumatic. Eyes: Extraocular muscles are intact. Pupils are equal, round and reactive to light and accommodation. Ears: No lesions. Nose appeared normal. Throat: No exudate or erythema. NECK: Supple. No JVD, no carotid bruit. No lymphadenopathy or thyromegaly. LUNGS: Clear to auscultation. Percussion note normal. Chest symmetrical. HEART: S1, S2, no S3. No murmurs. No cyanosis or clubbing. No ascites. Pulses: Dorsalis pedis and posterior tibial pulses +1 to +2 both sides. ABDOMEN: Soft. Non-tender. Bowel sounds active. No CVA tenderness. No mass felt. EXTREMITIES: No edema. Full range of motion of all extremities, equal. NEUROLOGIC: No focal deficit. Cranial nerves II through XII are grossly intact. No headache, no double vision or headache. SKIN: Not dry. Intact. Turgor-normal. LYMPHATIC: No palpable lymph nodes/no lymphedema. MUSCULOSKELETAL: Normal joints with no swelling. Muscle tone is normal. LAB REVIEW: 04/08/20 04:30 04/08/20 04:30 04/08/20 04:30: Sodium 138.0, Potassium 4.16, Chloride 114.9 H, Carbon Dioxide 16.8 L, Anion Gap 10.46, BUN 10.1, Creatinine 1.02, Estimated GFR (MDRD) 53.00, BUN/Creatinine Ratio 9.90, Glucose 113.8 H, Calcium 8.59, Total Bilirubin 0.30, AST 29.9, ALT 16.3, Alkaline Phosphatase 51.4 L, Total Protein 6.21 L, Albumin 3.40 L, Globulin 2.81, Albumin/Globulin Ratio 1.20 04/08/20 04:30: WBC 4.13 L, RBC 2.87 L, Hgb 8.7 L, Hct 26.2 L, MCV 91.3, MCH 30.3, MCHC 33.2, RDW Coeff of Makeda 14.0, Plt Count 76 L, Immature Gran % (Auto) 0.7, Neut % (Auto) 60.8, Lymph % (Auto) 31.2, [place] % (Auto) 6.8, Eos % (Auto) 0.0, Baso % (Auto) 0.5, Neut # (Auto) 2.5, Lymph # (Auto) 1.3, [place] # (Auto) 0.3 L, Eos # (Auto) 0.0, Baso # (Auto) 0.0, Immature Gran # (Auto) 0.0 ASSESSMENT: Please see below. 1. Acute colitis 2. Palpitations likely related to low TSH, resolved 3. Chronic anemia improved after stopping IV fluids 4. Dehydration, resolved. PLAN: 1. Will discharge home. 2. Flagyl 500mg TID for 5 more days 3. TSH 4. Synthroid 100mg 5. Low residual diet, No dairy 6. Protonix 40mg BID for two weeks. Plan and coordination of the patient's care discussed in the presence of Setter Automatic Spinning Lathe and nurse. SCRIBED BY: Torey RUIZ scribed while in presence of service performed by Dr. Coto/Margy Bobby APRN on 04/08/20 ([id number])
--- NOTE | 2020-04-08 14:25 | PN ---
DATE OF SERVICE: 04/08/20 SUBJECTIVE: The patient was seen and examined with the nurse practitioner. The patient's condition is stable. She is up and about. Colitis seems to have resolved. Cardiovascular status is stable and has been treated with Flagyl and Cipro. We are going to continue as an outpatient. The palpitation is has practically resolved. Palpitation likely was from dehydration and colitis with tendancy, may have to be having some SVT, one episode of 5 second SVT with rate of 150 was noted while she was in the hospital. Condition at time of discharge stable. TIME SPENT: More than 30 minutes. Plan and coordination of the patient's care discussed in the presence of nurse. MARSHA
--- NOTE | 2020-04-08 14:38 | DS ---
DATE OF SERVICE: 04/08/20 FINAL DIAGNOSIS: 1. ACUTE COLITIS 2. DEHYDRATION, RESOLVED 3. PALPITATIONS, LIKELY RELATED TO LOW TSH 4. ANEMIA 5. HYPOKALEMIA, RESOLVED HISTORY: 6. DIABETES MELLITUS, TYPE 2 7. DYSLIPIDEMIA 8. HYPERTENSION 9. HYPOTHYROIDISM 10. CAD 11. SD 12. RESTLESS LEG SYNDROME 13. B12 DEFICIENCY 14. PANCYTOPENIA, SEES DR. DAVID 15. POLYARTHRITIS 16. CABG, 2008 17. CORONARY STENT, 2014 18. HYSTERECTOMY, 1980 19. CATARACT SURGERY, 2012 AND 2014 20. RIGHT HIP REPLACEMENT, 2014 21. FEMORAL REVISION, 2015 LAST VITALS Temp Pulse Resp BP Pulse Ox 97.9 F 61 16 128/56 L 97 04/08/20 06:00 04/08/20 06:00 04/08/20 06:00 04/08/20 06:00 04/08/20 06:00 DISCHARGE INSTRUCTIONS: 1. AN APPOINTMENT IS SCHEDULED WITH DR. COTO/PEPPER PRIETO APRN/JOSHUA JIMENEZ APRN ON AT 10 AM 2. CODE STATUS: FULL CODE MEDICATIONS AT DISCHARGE: Acetaminophen (Tylenol) 500 mg PO Q4H PRN PRN Reason: Headache Last Admin: 04/07/20 11:32 Dose: 650 mg Documented by: Amlodipine Besylate (Norvasc) 5 mg PO DAILY [facility] Last Admin: 04/08/20 08:40 Dose: 5 mg Documented by: Levothyroxine Sodium (Synthroid) 100 mcg PO QDAC [facility] ([facility]) Last Admin: 04/08/20 05:40 Dose: 100 mcg Documented by: Losartan Potassium (Cozaar) 50 mg PO BID [facility] Last Admin: 04/08/20 08:40 Dose: 50 mg Documented by: Metformin HCl (Glucophage) 1,000 mg PO BIDWM [facility] Last Admin: 04/08/20 08:40 Dose: 1,000 mg Documented by: Metoprolol Succinate (Toprol Xl) 50 mg PO DAILY [facility] Last Admin: 04/08/20 08:40 Dose: 50 mg Documented by: Mirabegron (Myrbetriq) 25 mg PO DAILY [facility] Last Admin: 04/08/20 08:40 Dose: 25 mg Documented by: Pantoprazole Sodium 40 mg PO BID [facility] ([facility]) Last Admin: 04/08/20 09:00 Dose: 40 mg Documented by: Pravastatin Sodium (Pravachol) 40 mg PO BEDTIME [facility] Last Admin: 04/07/20 20:31 Dose: 40 mg Documented by: TOVIAZ 4 MG PO BEDTIME FLAGYL 500 MG TID FOR 5 DAYS (NEW) NEW PRESCRIPTIONS: FLAGYL 500 MG TID FOR 5 DAYS PROTONIX 40 MG BID FOR 14 DAYS SYNTHROID 100 MC DAILY DISCONTINUED MEDICATIONS: LEVOTHYROXINE (SYNTHROID) 125 MCG DAILY DIET INSTRUCTIONS: LOW RESIDUE, NO DAIRY NO DAIRY FOR AT LEAST 1 MONTH (MAY AGGRAVATE LOOSE STOOLS) ACTIVITY: MAY RESUME ACTIVITY TOLERATED SMOKING: NOT APPLICABLE DISEASE SPECIFIC EDUCATION: DIET TO INCLUDE LOW FIBER (RESIDUE) NO DAIRY FOR AT LEAST 1 MONTH APPOINTMENT MEDICATIONS NUTRITION HOSPITAL COURSE: Mari was hospitalized with abdominal distress, pain. The patient had acute colitis, has already been seen at [facility], [place]. The patient had similar symptoms and was put on Flagyl and Cipro. Condition has improved. She also complained of palpitation. During the hospital stay, the patient was noted to have significant arrhythmias except for one episode where she had SVT for five seconds with rate of 150. The patient's cardiovascular status was practically unremarkable. She had coronary bypass surgery in the past. No symptoms of CHF. At time of discharge was up and about with no help. She lives by herself. She cooks her meals. She was oriented to time, place and person. She had a good bowel movement. Echo showed normal LV contractility, large LA cavity and borderline LVH. The patient is on Metoprolol 50 mg and Cozaar 50 mg twice a day. If she has palpitations which she reports as an outpatient when she comes for followup, will increase the Metoprolol to twice a day and decrease the Cozaar to one a day. She has the medications pertaining to her hypertension and heart and they are not changed. The patient has borderline anemia and should be monitored as an outpatient. The patient has refused to have colonoscopy or EGD, refused any referral to GI specialist. Condition at time of discharge stable. LABS; 04/08/20 04:30: TSH 0.245 L 04/08/20 04:30: Sodium 138.0, Potassium 4.16, Chloride 114.9 H, Carbon Dioxide 16.8 L, Anion Gap 10.46, BUN 10.1, Creatinine 1.02, Estimated GFR (MDRD) 53.00, BUN/Creatinine Ratio 9.90, Glucose 113.8 H, Calcium 8.59, Total Bilirubin 0.30, AST 29.9, ALT 16.3, Alkaline Phosphatase 51.4 L, Total Protein 6.21 L, Albumin 3.40 L, Globulin 2.81, Albumin/Globulin Ratio 1.20 04/08/20 04:30: WBC 4.13 L, RBC 2.87 L, Hgb 8.7 L, Hct 26.2 L, MCV 91.3, MCH 30.3, MCHC 33.2, RDW Coeff of Makeda 14.0, Plt Count 76 L, Immature Gran % (Auto) 0.7, Neut % (Auto) 60.8, Lymph % (Auto) 31.2, [place] % (Auto) 6.8, Eos % (Auto) 0.0, Baso % (Auto) 0.5, Neut # (Auto) 2.5, Lymph # (Auto) 1.3, [place] # (Auto) 0.3 L, Eos # (Auto) 0.0, Baso # (Auto) 0.0, Immature Gran # (Auto) 0.0 TIME SPENT: More than 60 minutes. MTDD
--- NOTE | 2020-04-08 14:39 | PN ---
BILLING 04/04/20 ADMISSION DAY LEVEL 5 04/05/20 INTERMEDIATE 04/06/20 INTERMEDIATE 04/07/20 INTERMEDIATE 04/08/20 DISCHARGE MTDD
--- NOTE | 2020-04-08 15:14 | CM.DICTOOL ---
ADMISSION: 04/04/20 09:45 DISCHARGE: 2019 DATE OF SERVICE: 04/08/20 FINAL DIAGNOSIS ACTUE COLITIS DEHYDRATION, RESOLVED PALPITATIONS, LIKELY RELATED TO LOW TSH ANEMIA HYPOKALEMIA, RESOLVED HISTORY: DIABETES MELLITUS, TYPE 2 DYSLIPIDEMIA HYPERTENSION HYPOTHYROIDISM CAD MO RESTLESS LEG SYNDROME B12 DEFICIENCY PANCYTOPENIA, SEES DR. DAVID POLYARTHRITIS CABG, 2009 CORONARY STENT, 2015 HYSTERECTOMY, 1981 CATARACT SURGERY, 2013 AND 2015 RIGHT HIP REPLACEMENT, 2015 FEMORAL REVISION, 2016 LAST VITALS Temp Pulse Resp BP Pulse Ox 97.9 F 61 16 128/56 L 97 04/08/20 06:00 04/08/20 06:00 04/08/20 06:00 04/08/20 06:00 04/08/20 06:00 TAKE THESE MEDICATIONS AT HOME Acetaminophen (Tylenol) 500 mg PO Q4H PRN PRN Reason: Headache Last Admin: 04/07/20 11:32 Dose: 650 mg Documented by: Amlodipine Besylate (Norvasc) 5 mg PO DAILY [facility] Last Admin: 04/08/20 08:40 Dose: 5 mg Documented by: Levothyroxine Sodium (Synthroid) 100 mcg PO QDAC [facility] ([facility]) Last Admin: 04/08/20 05:40 Dose: 100 mcg Documented by: Losartan Potassium (Cozaar) 50 mg PO BID [facility] Last Admin: 04/08/20 08:40 Dose: 50 mg Documented by: Metformin HCl (Glucophage) 1,000 mg PO BIDWM [facility] Last Admin: 04/08/20 08:40 Dose: 1,000 mg Documented by: Metoprolol Succinate (Toprol Xl) 50 mg PO DAILY [facility] Last Admin: 04/08/20 08:40 Dose: 50 mg Documented by: Mirabegron (Myrbetriq) 25 mg PO DAILY [facility] Last Admin: 04/08/20 08:40 Dose: 25 mg Documented by: Pantoprazole Sodium 40 mg PO BID [facility] ([facility] Last Admin: 04/08/20 09:00 Dose: 40 mg Documented by: Pravastatin Sodium (Pravachol) 40 mg PO BEDTIME [facility] Last Admin: 04/07/20 20:31 Dose: 40 mg Documented by: TOVIAZ 4 MG PO BEDTIME FLAGYL 500 MG TID FOR 5 DAYS (NEW) ALLERGIES Penicillins Allergy (Verified 04/04/20 10:37) RASH morphine Adverse Reaction (Verified 04/04/20 10:37) Sulfa (Sulfonamide Antibiotics) Adverse Reaction (Verified 04/04/20 10:37) DISCONTINUED MEDICATIONS LEVOTHYROXINE (SYNTHROID) 125 MCG DAILY NEW PRESCRIPTIONS: FLAGYL 500 MG TID FOR 5 DAYS PROTONIX 40 MG BID FOR 14 DAYS SYNTHROID 100 MC DAILY SMOKING: NOT APPLICABLE DISEASE SPECIFIC EDUCATION: DIET TO INCLUDE LOW FIBER (RESIDUE) NO DAIRY FOR AT LEAST 1 MONTH APPOINTMENT MEDICATIONS NUTRITION LAB REVIEW: 04/08/20 04:30 04/08/20 04:30 04/08/20 04:30: TSH 0.245 L 04/08/20 04:30: Sodium 138.0, Potassium 4.16, Chloride 114.9 H, Carbon Dioxide 16.8 L, Anion Gap 10.46, BUN 10.1, Creatinine 1.02, Estimated GFR (MDRD) 53.00, BUN/Creatinine Ratio 9.90, Glucose 113.8 H, Calcium 8.59, Total Bilirubin 0.30, AST 29.9, ALT 16.3, Alkaline Phosphatase 51.4 L, Total Protein 6.21 L, Albumin 3.40 L, Globulin 2.81, Albumin/Globulin Ratio 1.20 04/08/20 04:30: WBC 4.13 L, RBC 2.87 L, Hgb 8.7 L, Hct 26.2 L, MCV 91.3, MCH 30.3, MCHC 33.2, RDW Coeff of Makeda 14.0, Plt Count 76 L, Immature Gran % (Auto) 0.7, Neut % (Auto) 60.8, Lymph % (Auto) 31.2, [place] % (Auto) 6.8, Eos % (Auto) 0.0, Baso % (Auto) 0.5, Neut # (Auto) 2.5, Lymph # (Auto) 1.3, [place] # (Auto) 0.3 L, Eos # (Auto) 0.0, Baso # (Auto) 0.0, Immature Gran # (Auto) 0.0 PLAN: DISCHARGE HOME DIET: LOW RESIDUE, NO DAIRY NO DAIRY FOR AT LEAST 1 MONTH (MAY AGGRAVATE LOOSE STOOLS) ACTIVITY: MAY RESUME ACTIVITY TOLERATED AN APPOINTMENT IS SCHEDULED WITH DR. COTO/PEPPER PRIETO APRN/JOSHUA JIMENEZ APRN ON AT 10 AM CODE STATUS: FULL CODE MS. FRIAS IS ALERT AND ORIENTED X 4. SHE IS VERY PLEASANT AND TALKATIVE. SHE LIVES ALONE IN AN APARTMENT AND REPORTS SHE HAS A HOMEMAKER ONCE A WEEK. SHE REPORTS SHE CUT THE HOURS HERSELF BECAUSE SHE DIDN'T FEEL SHE NEEDED A HOMEMAKER THREE TIMES A WEEK. SHE IS INDEPENDENT WITH ACTIVITIES OF DAILY LIVING. HER DAUGHTER IS SUPPORTIVE. MEAL INTAKES HAVE IMPROVED SINCE HER ADMIS NEGAR. SHE IS CONSUMING 50-100% OF HER MEALS. SHE IS CONTINENT OF BOWEL AND BLADDER, BUT REPORTS SHE HAS A STOOL ALMOST EVERY TIME SHE URINATES. THE STOOLS ARE NO LONGER WATERY, BUT ARE A THICK LIQUID. NO FORMED STOOLS NOTED BY PATIENT OR STAFF. SHE REPORTS FREQUENCY OF URINATION AND HAS TROUBLE CONTROLLING HER URINE. SHE REPORTS SHE SEES A UROLOGIST, DR. BUCIO. HYDRATION STATUS HAS IMPROVED. SKIN IS INTACT, BUT THE PATIENT HAS BRUISING TO THE RIGHT FOREARM. THE PATIENT REPORTS SHE HAS A WALKER AND A COMMODE OVER HER TOILET. SHE DOESN'T USE THE WALKER IN HER APARTMENT. MD PEPPER COX APRN/PEYTON JIMENEZ APRN
--- NOTE | 2020-04-13 13:41 | ECHO2D ---
Date of Exam: 04/08/2020 Ordering Physician: DR. ROSIO COTO Room #: OP Reason for Echo: SOB, HTN, HX CABG, DM M-Mode Normal Adult Results LV Dimensions Normal Adult Results AoV Opening excursions >1.6 >1.6 LVEDD-base- 3.5-5.8 4.3 Ao root dimensions 2.0-3.7 2.7 LVESD-base- 3.1-4.6 L. Atrium dimensions 1.9-3.8 4.3 Post. Wall thickness 0.8-1.1 1.1 IV septum (thickness) 0.7-1.2 1.0 Post. Wall excursion 0.72-1.3 NORMAL Septal motion NORMAL Systolic motion R. Ventricular cavity 1.5-2.0 NORMAL LVEF 60% 68% Paradoxical septal wall motion NORMAL 2-D : 2-D M Mode Echocardiogram was performed using apical four chamber and left parasternal long and short axis views. Mitral, tricuspid and aortic valves appear to be normal. Contractility of the left ventricle seems to be normal, so is the cavity size. ENLARGED LEFT ATRIAL CAVITY. Aortic root appears to be normal. There is no pericardial effusion. There is no thrombus noted in the left ventricle or left atrial cavity. No mitral valve prolapse noted. M-MODE: MV: NORMAL AV: NORMAL TV: NORMAL PV: CHAMBER SIZE: ENLARGED LEFT ATRIAL CAVITY WALL MOTION: NORMAL PERICARDIUM: NORMAL INTERPRETATION: 1. NORMAL LEFT VENTRICULAR CONTRACTILITY 2. NORMAL VALVES 3. ENLARGED LEFT ATRIAL CAVITY MTDD
== END 2020-04-08 17:41 | disposition home or self-care (01) | DRG 392 ==
LOC: ED 05:48 → MEDSURG B 09:45
PROVIDERS: ADMIT Internal Medicine; ATTEND Internal Medicine
DX: R00.2 Palpitations; R16.1 Splenomegaly, not elsewhere classified; M54.9 Dorsalgia, unspecified; Z79.899 Other long term (current) drug therapy; Z95.5 Presence of coronary angioplasty implant and graft; Z87.19 Personal history of other diseases of the digestive system; D61.818 Other pancytopenia; G25.81 Restless legs syndrome; R10.9 Unspecified abdominal pain; I25.810 Atherosclerosis of coronary artery bypass graft(s) without angina pectoris; M51.36 Other intervertebral disc degeneration, lumbar region; E86.0 Dehydration; Z51.81 Encounter for therapeutic drug level monitoring; K52.9 Noninfective gastroenteritis and colitis, unspecified; E87.6 Hypokalemia; I25.2 Old myocardial infarction; I10 Essential (primary) hypertension; E11.9 Type 2 diabetes mellitus without complications; E53.8 Deficiency of other specified B group vitamins; E05.90 Thyrotoxicosis, unspecified without thyrotoxic crisis or storm; Z86.73 Personal history of transient ischemic attack (TIA), and cerebral infarction without residual deficits; M51.34 Other intervertebral disc degeneration, thoracic region; E78.5 Hyperlipidemia, unspecified; D64.9 Anemia, unspecified; M15.0 Primary generalized (osteo)arthritis